=== PATIENT | female | born 1945 | race Caucasian/White ===

== ENCOUNTER 2018-01-17 09:39 | Inpatient (IN) ==
[2018-01-17] MEDS ORDERED: methylPREDNISolone 125 MG/2 ML VIAL IVP ONE (09:40)
[2018-01-17] MEDS ORDERED: Ipratropium/Albuterol Neb 3 ML IH ONE ×2 (09:40→09:45)
--- NOTE | 2018-01-17 09:49 | Emergency Department Note ---
Disposition Clinical Impression: HCAP (healthcare-associated pneumonia), Atrial fibrillation with RVR, Pleural effusion Disposition: Admitted As Inpatient Condition: Fair Referrals: NONE,PCP [Primary Care Provider] - Eyad Humphreys [Family Provider] - Forms: ED Satisfaction Letter SOB HPI - General Chief Complaint: ED Shortness of Breath/Dyspnea Stated Complaint: RATNA, gen. ill Time Seen by Provider: 01/17/18 09:40 Source: patient Mode of arrival: EMS Limitations: no limitations Nursing Notes Reviewed: Yes Vital Signs Reviewed: Yes - History of Present Illness 72-year-old female past medical history COPD with oxygen dependency 4 L nasal cannula, CHF, atrial fibrillation on anticoagulation who presents to the ER via EMS due to shortness of breath. Reports that she was admitted last week to [facility]. States that she went home on Saturday. She continued to feel short of breath but then started to feel worse last night. EMS was called and the patient was reported to be in the 80s on her usual oxygen requirement upon arrival. They exchanged her tubing and she reported improvement of symptoms. She denies any fevers cough chest pain nausea vomiting or diarrhea. No history of PR, DVT or pulmonary embolism. Pt Subjective Complaint: shortness of breath Onset (ago): day(s) Context: recent illness Severity: severe Consistency/Duration: constant Improves with: nothing Worsens with: nothing Known history of: COPD, congestive heart failure Associated symptoms: Reports: denies other symptoms Treatment prior to arrival: oxygen Cough present: No Sputum production: No Sputum Amount: None - Related Data Home oxygen amount: 4 liters Home Medications Medication Instructions Recorded Confirmed Albuterol Sulfate 12/04/17 Betaxolol HCl 12/04/17 Brimonidine 0.2% 12/04/17 Dextromethorphan HBr 12/04/17 Diphenhydramine HCl 12/04/17 Dorzolamide 12/04/17 Doxylamine Succinate 12/04/17 Eliquis 12/04/17 Guaifenesin 12/04/17 Lumigan 12/04/17 Metoprolol 12/04/17 Montelukast 12/04/17 Multivitamin 12/04/17 PredniSONE 12/04/17 Proair Hfa 12/04/17 Symbicort 160/4.5 12/04/17 Previous Rx's Medication Instructions Recorded Benzonatate [Tessalon] 100 mg PO TID #15 capsule 12/04/17 PredniSONE [Deltasone] 20 mg PO DAILY #12 tablet 12/04/17 levoFLOXacin [Levaquin] 500 mg PO DAILY #10 tablet 12/04/17 Allergies Allergy/AdvReac Type Severity Reaction Status Date / Time No Known Allergies Allergy Verified 12/16/17 15:56 All systems ED: reviewed and negative except as stated. Constitutional: Denies: fever Cardiovascular: Denies: chest pain Respiratory: Reports: dyspnea. Denies: cough, wheezes, sputum production Gastrointestinal: Denies: nausea, vomiting, diarrhea Past Medical History - Past Medical History Attestation: Yes The following information was validated with the patient. Source: patient Medical history: Reports: atrial fibrillation, CHF, COPD, glaucoma, other Psychiatric history: Reports: no psych history - Social History Smoking Status: Former smoker Smokeless Tobacco Status: No Alcohol use: Reports: heavy Drug use: Reports: none Physical Exam - General Limitations: no limitations General appearance: alert, in no apparent distress - Head Head exam: atraumatic, normocephalic - Eye Eye exam: Present: normal appearance - ENT ENT exam: normal exam - Neck Neck exam: Present: normal inspection - Chest Chest inspection: Present: normal inspection, symmetric chest wall rise - Respiratory Respiratory exam: Present: prolonged expiratory phase, other (Diminished breath sounds bilaterally.) - Cardiovascular Cardiovascular exam: Present: tachycardia, irregular rhythm, normal heart sounds - Abdominal Exam Abdominal exam: Present: soft, Non-Tender. Absent: tenderness, distention, rigidity - Extremities Exam Extremities exam: Present: normal inspection, full ROM - Expanded Upper Extremity Exam Shoulder exam: Present: normal inspection, full ROM Arm exam: Present: normal inspection, full ROM Elbow exam: Present: normal inspection, full ROM Forearm/Wrist exam: Present: normal inspection, full ROM Hand exam: Present: normal inspection, full ROM - Expanded Lower Extremity Exam Hip/Pelvis exam: Present: normal inspection, full ROM Upper leg exam: Present: normal inspection, full ROM Knee exam: Present: normal inspection, full ROM Lower leg exam: Present: normal inspection, full ROM Ankle exam: Present: normal inspection, full ROM Foot/toe exam: Present: normal inspection, full ROM - Skin Skin exam: Present: warm, dry Course Course Narrative: Patient seen and examined. Vital signs reviewed. Atrial fibrillation with rapid ventricular response here. Blood pressure stable. Plan to give Cardizem bolus and initiated drip. DuoNeb for respiratory distress. Labs including troponin and BNP. EKG and chest x-ray. - Reevaluation(s) Reevaluation #1: Reevaluation. Patient complaining of generalized pain after laying in the bed. Noted to be tachycardic again into the 110s. Increase Cardizem to 10 patient initially was requesting transfer however we check with her insurance and no one is able to cover. They are agreeable with being admitted here. - Consultations Consultation #1: Spoke with interventional radiology at the request of the hospitalist. Aware of the patient. Awaiting INR studies. Vital Signs Temperature 97.7 F 01/17/18 09:41 Pulse Rate 126 01/17/18 09:41 Respiratory Rate 26 01/17/18 09:41 Blood Pressure 113/64 01/17/18 09:41 O2 Sat by Pulse Oximetry 98 01/17/18 09:41 Temperature 97.7 F 01/17/18 09:41 Pulse Rate 126 01/17/18 09:41 Respiratory Rate 32 01/17/18 09:51 Blood Pressure 113/64 01/17/18 09:41 O2 Sat by Pulse Oximetry 98 01/17/18 09:51 Oxygen Delivery Oxygen Delivery Nasal Cannula Shortness of Breath/Dyspnea - [facility] Narrative Medical decision making narrative: 72-year-old female presents with shortness of breath. Found to be in A. fib RVR. Patient rate controlled at this time with Cardizem bolus and drip. Chest x-ray demonstrates a right pleural effusion that was not on her previous imaging. She also has a leukocytosis likely from recent steroid administration. BNP elevated at 1000. Right effusion with concern for underlying opacification. With her recent admission we will cover for healthcare associated pneumonia. Interventional radiology was consulted as well for thoracentesis. Patient admitted to the hospitalist service. - Lab Data Lab results reviewed: Yes I reviewed the patient's lab results. Result diagrams: 01/17/18 10:03 01/17/18 10:03 Lab Results 01/17/18 01/17/18 01/17/18 Range/Units 10:03 10:03 10:03 WBC 19.9 H (4.3-11.1) K/mcL RBC 3.05 L (3.82-4.97) M/mcL Hgb 10.0 L (11.5-15.4) g/dL Hct 33.2 L (35.3-44.9) % MCV 108.9 H (83.0-100.0) fL MCH 32.8 (28.0-33.3) pg MCHC 30.1 L (31.6-35.5) g/dL RDW 12.2 (11.5-14.5) % Plt Count 218 (140-400) K/mcL MPV 11.3 (9.4-12.4) fL Immature Gran % 1.9 (0-4) % Seg Neutrophils % 83.2 % Lymphocytes % 4.5 % Monocytes % 10.1 % Eosinophils % 0.1 % Basophils % 0.2 % Neutrophils # 16.6 H (1.6-8.9) K/mcL Lymphocytes # 0.9 (0.6-4.6) K/mcL Monocytes # 2.0 H (0.0-1.3) K/mcL Eosinophils # 0.0 (0.0-0.6) K/mcL Basophils # 0.0 (0.0-0.2) K/mcL Sodium 136 (136-145) mEq/L Potassium 5.8 H (3.5-5.1) mEq/L Chloride 90 L (98-107) mEq/L Carbon Dioxide 41 H* (23-29) mEq/L BUN 18 (8-23) mg/dL Creatinine 0.75 (0.60-1.20) mg/dL Est GFR ( Amer) > 60 (> 60) Est GFR (Non-Af Amer) > 60 (> 60) BUN/Creatinine Ratio 24 (6-26) Glucose 201 H (70-105) mg/dL Calculated Osmolality 290 (280-300) Calcium 9.1 (8.6-10.3) mg/dL Troponin I < 0.03 (< 0.04) ng/mL B-Natriuretic Peptide 1004 H (Less than 100) pg/mL - Radiology Data Radiology results reviewed: Yes I reviewed the patient's radiology results. Chest X-Ray 01/17/18 09:40 IMPRESSION: Significant worsening of pleural and parenchymal opacity within the lower 2/3 right hemithorax over the past 11 days. This may represent asymmetric pleural effusion and pulmonary edema secondary to congestive heart failure. However, underlying pneumonia should be considered as well due to the asymmetric distribution. RECOMMENDATION: Recommend appropriate treatment for both suspected right lower lobe pneumonia and some congestive heart failure and follow-up imaging to document resolution. D/ / Stephon Gandhi MD / Stephon Gandhi MD Interpreting Provider: Stephon Gandhi MD - EKG Data EKG attestation: Yes I reviewed and interpreted this EKG. EKG results narrative: EKG demonstrates atrial fibrillation with rapid ventricular response with rate of 132. Normal axis. Normal intervals. Normal R-wave progression. No gross ST elevations or depressions. No acute ischemic findings. No significant changes from prior EKG dated 01/06/18. Aylin - Aylin Situation: Demographics, MOA Background: Presenting Complaint, Relevant PMH, Meds, & Allergies Assessment: Vital Signs, Course and respsone to treatment, Exam Concerns, Patient/Family Expectation, Pertinant Lab Results Recommendation: Barrier(s) to disposition, Recommendation based on pending studies, treatments, or consults Aylin Report Given to: Dr. Haidre Viera Repor Time: 13:07 (Agrees with consultation to interventional radiology.)
[2018-01-17 10:23] LABS: Basophils % 0.2 %; Eosinophils % 0.1 %; Hematocrit 33.2 % (35.3-44.9); Immature Granulocytes % 1.9 % (0-4); Lymphocytes # 0.9 K/mcL (0.6-4.6); Lymphocytes % 4.5 %; Mean Corpuscular HGB Conc 30.1 g/dL (31.6-35.5); Mean Corpuscular Hemoglobin 32.8 pg (28.0-33.3); Mean Corpuscular Volume 108.9 fL (83.0-100.0); Mean Platelet Volume 11.3 fL (9.4-12.4); Monocytes % 10.1 %; Neutrophils # 16.6 K/mcL (1.6-8.9); Platelet Count 218 K/mcL (140-400); Red Blood Count 3.05 M/mcL (3.82-4.97); Red Cell Distribution Width 12.2 % (11.5-14.5); Segmented Neutrophils % 83.2 %
--- NOTE | 2018-01-17 10:23 | Emergency Department Note ---
Disposition Clinical Impression: HCAP (healthcare-associated pneumonia) Disposition: Transfer Intermediate Care Fac Referrals: NONE,PCP [Primary Care Provider] - Eyad Humphreys [Family Provider] - Forms: ED Satisfaction Letter General Adult HPI - General Chief complaint: ED Shortness of Breath/Dyspnea Stated complaint: RATNA, gen. ill Time Seen by Provider: 01/17/18 09:40 Source: patient Mode of arrival: EMS Limitations: no limitations - History of Present Illness Pain Scale: 0 - Related Data Home Medications Medication Instructions Recorded Confirmed Albuterol Sulfate 12/04/17 Betaxolol HCl 12/04/17 Brimonidine 0.2% 12/04/17 Dextromethorphan HBr 12/04/17 Diphenhydramine HCl 12/04/17 Dorzolamide 12/04/17 Doxylamine Succinate 12/04/17 Eliquis 12/04/17 Guaifenesin 12/04/17 Lumigan 12/04/17 Metoprolol 12/04/17 Montelukast 12/04/17 Multivitamin 12/04/17 PredniSONE 12/04/17 Proair Hfa 12/04/17 Symbicort 160/4.5 12/04/17 Previous Rx's Medication Instructions Recorded Benzonatate [Tessalon] 100 mg PO TID #15 capsule 12/04/17 PredniSONE [Deltasone] 20 mg PO DAILY #12 tablet 12/04/17 levoFLOXacin [Levaquin] 500 mg PO DAILY #10 tablet 12/04/17 Allergies Allergy/AdvReac Type Severity Reaction Status Date / Time No Known Allergies Allergy Verified 12/16/17 15:56 Constitutional: Denies: fever Cardiovascular: Denies: chest pain Respiratory: Reports: dyspnea. Denies: cough, wheezes, sputum production Gastrointestinal: Denies: nausea, vomiting, diarrhea Past Medical History - Past Medical History Medical history: Reports: atrial fibrillation, CHF, COPD, glaucoma, other Psychiatric history: Reports: no psych history - Social History Smoking Status: Former smoker Smokeless Tobacco Status: No Alcohol use: Reports: heavy Drug use: Reports: none Physical Exam - General Limitations: no limitations General appearance: alert, in no apparent distress Course Vital Signs Temperature 97.7 F 01/17/18 09:41 Pulse Rate 126 01/17/18 09:41 Respiratory Rate 26 07/27/18 09:41 Blood Pressure 113/64 07/27/18 09:41 O2 Sat by Pulse Oximetry 98 01/17/18 09:41 Temperature 97.7 F 01/17/18 09:41 Pulse Rate 126 01/17/18 09:41 Respiratory Rate 32 01/17/18 09:51 Blood Pressure 113/64 01/17/18 09:41 O2 Sat by Pulse Oximetry 98 01/17/18 09:51 Oxygen Delivery Oxygen Delivery Nasal Cannula Medical Decision Making - Lab Data Result diagrams: 01/17/18 10:03 01/17/18 10:03 Lab Results 01/17/18 01/17/18 01/17/18 Range/Units 10:03 10:03 10:03 WBC 19.9 H (4.3-11.1) K/mcL RBC 3.05 L (3.82-4.97) M/mcL Hgb 10.0 L (11.5-15.4) g/dL Hct 33.2 L (35.3-44.9) % MCV 108.9 H (83.0-100.0) fL MCH 32.8 (28.0-33.3) pg MCHC 30.1 L (31.6-35.5) g/dL RDW 12.2 (11.5-14.5) % Plt Count 218 (140-400) K/mcL MPV 11.3 (9.4-12.4) fL Immature Gran % 1.9 (0-4) % Seg Neutrophils % 83.2 % Lymphocytes % 4.5 % Monocytes % 10.1 % Eosinophils % 0.1 % Basophils % 0.2 % Neutrophils # 16.6 H (1.6-8.9) K/mcL Lymphocytes # 0.9 (0.6-4.6) K/mcL Monocytes # 2.0 H (0.0-1.3) K/mcL Eosinophils # 0.0 (0.0-0.6) K/mcL Basophils # 0.0 (0.0-0.2) K/mcL Sodium 136 (136-145) mEq/L Potassium 5.8 H (3.5-5.1) mEq/L Chloride 90 L (98-107) mEq/L Carbon Dioxide 41 H* (23-29) mEq/L BUN 18 (8-23) mg/dL Creatinine 0.75 (0.60-1.20) mg/dL Est GFR ( Amer) > 60 (> 60) Est GFR (Non-Af Amer) > 60 (> 60) BUN/Creatinine Ratio 24 (6-26) Glucose 201 H (70-105) mg/dL Calculated Osmolality 290 (280-300) Calcium 9.1 (8.6-10.3) mg/dL Troponin I < 0.03 (< 0.04) ng/mL B-Natriuretic Peptide 1004 H (Less than 100) pg/mL Attestation Statement - Attestation Attestation: I examined this patient and my medical decision-making was reviewed with the Resident Physician. I agree with the documented findings, disposition and treatment plan as described except to the extent set forth below. 72 year old female presents to the ED fromher private home with family visiting from [place] and states that she feels lik giselle prattib is in RVR , generalized weakness, and altered mental status. Her main historians are her family ( and daughter) and they states taht she was most recently admited to the hospital for hypoxia and dyspnea at [place] about one week ago. Patient is in rvr and appears to be mildly altered and tahcypneic. Jono is requesting that she be transferred to an [facility] hospital due to insurance reasons , eventhough we have offered her admission to our hospital. [facility] has politley decline because they do not have pulmonology services. Joya has likley HCAP and new plerual effusions in her rright lung We mavis transfer
[2018-01-17 10:44] LABS: Troponin I < 0.03 ng/mL (< 0.04)
[2018-01-17 10:48] LABS: BUN/Creatinine Ratio 24 (6-26); Blood Urea Nitrogen 18 mg/dL (8-23); Calcium 9.1 mg/dL (8.6-10.3); Carbon Dioxide 41 mEq/L (23-29); Chloride 90 mEq/L (98-107); Glucose 201 mg/dL (70-105); Osmolality,Calculated 290 (280-300); Potassium 5.8 mEq/L (3.5-5.1); Sodium 136 mEq/L (136-145); eGFR For Non-African Americans > 60 (> 60)
[2018-01-17] MEDS ORDERED: Piperacillin/Tazobactam 3.375 GM in 0.9 % Sodium Chloride Mini Bag 100 ML IVPB ONE (11:01)
[2018-01-17] MEDS ORDERED: Furosemide 40 MG in 0.9 % Sodium Chloride 50 ML IVPB ONE (11:01)
[2018-01-17] MEDS ORDERED: Levofloxacin 750 MG/150 ML 750 MG/150 ML BAG IVPB ONE (11:01)
[2018-01-17] MEDS ORDERED: Furosemide 40 MG/4 ML VIAL IVP ONE (11:11)
[2018-01-17 14:09] LABS: INR 2.7; Prothrombin Time 30.3 Seconds (9.4-12.1)
--- NOTE | 2018-01-17 14:15 | Internal Med History&Physical ---
Date of Encounter: 01/17/18 Internal Medicine - H&P: HPI History of present illness: Ms. Hayward is a 72 year old female Past Med Surg Social Fam HX - Past Medical History Medical history: atrial fibrillation, CHF, COPD, glaucoma, other Additional medical history: glaucoma Psychiatric history: no psych history - Social History Smoking Status: Former smoker Smokeless Tobacco Status: No Alcohol use: heavy Drug use: none Internal Medicine - H&P: Meds Albuterol Sulfate 12/04/17 [History] Benzonatate [Tessalon] 100 mg PO TID #15 capsule 12/04/17 [Rx] Betaxolol HCl 12/04/17 [History] Brimonidine 0.2% 12/04/17 [History] Dextromethorphan HBr 12/04/17 [History] Diphenhydramine HCl 12/04/17 [History] Dorzolamide 12/04/17 [History] Doxylamine Succinate 12/04/17 [History] Eliquis 12/04/17 [History] Guaifenesin 12/04/17 [History] Lumigan 12/04/17 [History] Metoprolol 12/04/17 [History] Montelukast 12/04/17 [History] Multivitamin 12/04/17 [History] PredniSONE 12/04/17 [History] PredniSONE [Deltasone] 20 mg PO DAILY #12 tablet 12/04/17 [Rx] Proair Hfa 12/04/17 [History] Symbicort 160/4.5 12/04/17 [History] levoFLOXacin [Levaquin] 500 mg PO DAILY #10 tablet 12/04/17 [Rx] 3 Allergy/AdvReac Type Severity Reaction Status Date / Time No Known Allergies Allergy Verified 12/16/17 15:56 All Systems PM: A 10-system review of systems was performed and is negative for pertinent findings except as documented above in the HPI. - Constitutional Vitals: Temp Pulse Resp BP Pulse Ox 97.7 F 109 19 106/64 94 01/17/18 09:41 01/17/18 13:37 01/17/18 13:37 01/17/18 13:37 01/17/18 13:37 Internal Med - H&P Results - Labs CBC & Chem 7: 01/17/18 10:03 01/17/18 10:03 - Assessment and plan (1) HCAP (healthcare-associated pneumonia) Current Visit: Yes Status: Acute Assessment and plan: will continue vancomycin, zosyn and levaquin for HCAP Pulmonary/critical care and IR on board for thoracocentesis the right sided pleural effusion follow thoracocentesis labs high risk for intubation- critical care is onboard follow lactic acid, ABG STAT please obtain records from [facility] oxygen via nasal cannula keeps sats > 92% follow bess cx send urine antigens (2) Pleural effusion Current Visit: Yes Status: Acute Assessment and plan: new right sided large pleural effusion will hold eliquis for now - Pulmonary/critical care and IR on board for thoracocentesis the right sided pleural effusion follow thoracocentesis labs will continue vancomycin, zosyn and levaquin for HCAP high risk for intubation- critical care is onboard follow lactic acid, ABG Lasix IV 40 mg Qday - was given one dose in the ED - biacrb is 41 will refrain from making her more alkalotic strict intake and out put cardiology consult for acute CHF please obtain records from [facility] oxygen via nasal cannula keeps sats > 92% follow bess cx (3) Atrial fibrillation with RVR Current Visit: Yes Status: Acute Assessment and plan: continue cardizem drip - currently rate is more controlled cardiology consulted will get TTE STAT obtain info from [facility] (4) Acute systolic CHF (congestive heart failure), NYHA class 3 Current Visit: Yes Status: Acute - Time Spent With Patient Total time spent is greater than 50% in coordination of care (as documented) at patient's floor/unit and/or counseling patient:
[2018-01-17 14:16] LABS: ABG Base Excess 15 mEq/L (-2 to 3); ABG HCO3 46 mEq/L (21-27); ABG Oxygen Saturation 83 % (95-98); ABG PCO2 98 mmHg (35-45); ABG PH 7.28 pH Units (7.32-7.45); ABG PO2 58 mmHg (85-104); ABG TCO2 49 mEq/L (20-26)
--- NOTE | 2018-01-17 14:21 | Pulmonology Consult Note ---
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 decompensated heart failure complicated by underlying COPD ABG is notable for acute on chronic worsening hypoxia and hypercapnic respiratory failure with baseline PCO2 of 7.28 and Pco2 of 98 This is secondary to hydrostatic pulmonary edema from heart failure and should improve as we are able to M improve her volume status We will start the patient on BiPAP and titrate settings as tolerated Repeat blood gas in 1-2 hours I discussed the case with the admitting hospitalist they requested the patient be transferred to the ICU for monitoring (2) COPD (chronic obstructive pulmonary disease) Current Visit: Yes Status: Acute I do not think she is having acute COPD exacerbation No clear indication for systemic glucocorticoids at this time We will schedule bronchodilators Supplemental oxygen keep saturation greater than 88% Qualifiers: Emphysema type: centrilobular Qualified Code(s): J43.2 - Centrilobular emphysema (3) Hyperkalemia Current Visit: Yes Status: Acute Without evidence of acute kidney injury. Doing dose of Lasix now which should improve this is likely some degree related to acidosis and that should improve also with treatment of underlying respiratory status. We will give a dose of calcium gluconate at this time and repeat value within 4 hours as remains elevated will give sodium polystyrene (4) Acute decompensated heart failure Current Visit: Yes Status: Acute Stat echocardiogram ordered Lasix given Cardiology consulted for worsening decompensated heart failure complicated by A. fib with RVR No clear indication that this was precipitated by obstructive coronary artery disease but we will discuss the case with cardiology regarding possibility of heart catheterization as this appears to be a new diagnosis of heart failure We will closely monitor her electrolytes including magnesium Strict I's and O's and will need Herrmann catheter placement (5) Atrial fibrillation with RVR Current Visit: Yes Status: Acute Currently receiving Cardizem infusion No dynamic changes on ECG suggestive of ischemia Holding long-term anticoagulation with Eliquis acutely (6) Pleural effusion Current Visit: Yes Status: Acute I evaluated the pleural effusion at bedside with ultrasound There is a large right-sided pleural effusion without complex features Secondary to heart failure Plan for thoracentesis once eliquis has cleared (likely tomorrow) cont diuresis (7) Leucocytosis Current Visit: Yes Status: Acute Patient has had persistent leukocytosis in fact from discharge from the hospital last admission she has had persistent leukocytosis at 15 at discharge last time now 19 but is afebrile source of infection at this time except what appears to be resolving cellulitis patient has been taking prednisone as well and I suspect that this is factoring into her elevated white blood cell count bess cultures will be obtained have a low threshold for starting empiric antimicrobials but given alterable rounds of antibiotics she is received from last month and more likely expedition related to decompensated heart failure as opposed to sepsis I have opted to monitor the patient as opposed to starting empiric antimicrobials. Lactic Acid WNL We will check pro-calcitonin Qualifiers: Leukocytosis type: unspecified Qualified Code(s): D72.829 - Elevated white blood cell count, unspecified History of Present Illness Consult date: 01/17/18 Requesting physician: Sera Thayer Reason for consult: hypoxemia Chief complaint: Difficulty in breathing. History of present illness: This is a very pleasant 72-year-old woman with past medical history of COPD and atrial fibrillation. The patient is from [place] and is visiting family here in [place] over the last month where she has had several hospitalizations. 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 on 01/06 for shortness of breath was treated for pneumonia COPD exacerbation and atrial fibrillation with RVR in the ED and transferred to [facility] because of insurance reasons. There she received a course of antibiotics prednisone was found to be in A. fib with RVR that was treated echocardiogram was performed which showed preserved ejection fraction per the family but to increase vascular congestion that they that was related to heart failure she was sent home after feeling somewhat better but returned to the hospital subsequently because of right upper extremity swelling and ultrasound of the extremity was done which was negative for DVT and she was treated with clindamycin for cellulitis which she was taking when she presented to the emergency department here at [place]. She is joined by her family including and daughter who states that she has had progressive shortness of breath and weakness and so they brought her back to the hospital a day. In the emergency department was noted be in A. fib with RVR with borderline hypotension but map has been consistently above 60. She has been afebrile but white count was elevated on examination she started having mild hyperkalemia but without the acute kidney injury BNP was greater than 1000 troponin was within normal limits lactate is pending chest x-ray notable for large right-sided opacity likely an effusion. She was originally triaged to the hospitalist service for telemetry monitoring and treatment of atrial fibrillation with presumed heart failure and the hot accepting hospitalist was confirmed by respiratory status and consulted pulmonary for further evaluation. In speaking with the patient the ED she tells me that she is short of breath but she is asked able to speak to me in relatively full sentences. She is fully awake and alert and the first admission she told me was that she "wanted to go home" and by that she is referring to wanting to be a little back to her home state [facility] which I assured her we will try to treat her as expeditiously as possible to improve her health in order to fulfill those wishes Although she suffers from baseline COPD there is no chronic oxygen requirement that they tell me about infection she at baseline is able uses stationary bike and walk distances without significant shortness of breath that appears that most of her dyspnea has occurred during the last month or so since she has been in [place]. She is a former smoker of [employer] but that is currently in remission. The patient denies productive cough abdominal pain chest pain diarrhea and nausea vomiting or neck pain. Of note she has a history of Childhood poliomyelitis Past Med Surg Social Fam HX - Past Medical History Medical history: atrial fibrillation, CHF, COPD, glaucoma, other Additional medical history: glaucoma Psychiatric history: no psych history - Social History Smoking Status: Former smoker Smokeless Tobacco Status: No Alcohol use: heavy Drug use: none Medications and Allergies 3 Allergy/AdvReac Type Severity Reaction Status Date / Time No Known Allergies Allergy Verified 12/16/17 15:56 All Systems: The remainder of the systems were reviewed and are negative Physical Examination Vital Signs: Vital Signs, Last 4 Hours Pulse Resp BP Pulse Ox 01/17/18 13:37 109 19 106/64 94 General appearance: no acute distress ENT: oropharynx moist Neck: supple, JVD Effort: mildly labored Auscultation: bilateral: diminished breath sounds (R> L left crakcles noted no wheezes ) Cardiovascular: irregular rhythm Gastrointestinal: soft, non-tender Integumentary: other (A few scattered areas of ecchymosis no rash) Extremities: edema (Bilateral 1+ pitting edema), other (Right upper extremity has some mild erythema over the mid humeral region there are pen escalona of demarcation from previous assessment in the erythema is markedly improved from the original demarcation line there is no open ulceration or fluctuance) Musculoskeletal: other (She has a left leg that is smaller in size than the right and that is a sequelae of childhood polio) normal mental status, non-focal exam, pupils equal and round anxious Results - Laboratory Findings CBC and BMP: 01/17/18 10:03 01/17/18 10:03 Abnormal lab findings: Abnormal lab results WBC 19.9 K/mcL (4.3-11.1) H 01/17/18 10:03 RBC 3.05 M/mcL (3.82-4.97) L 01/17/18 10:03 Hgb 10.0 g/dL (11.5-15.4) L 01/17/18 10:03 Hct 33.2 % (35.3-44.9) L 01/17/18 10:03 MCV 108.9 fL (83.0-100.0) H 01/17/18 10:03 MCHC 30.1 g/dL (31.6-35.5) L 01/17/18 10:03 Neutrophils # 16.6 K/mcL (1.6-8.9) H 01/17/18 10:03 Monocytes # 2.0 K/mcL (0.0-1.3) H 01/17/18 10:03 Potassium 5.8 mEq/L (3.5-5.1) H 01/17/18 10:03 Chloride 90 mEq/L (98-107) L 01/17/18 10:03 Carbon Dioxide 41 mEq/L (23-29) H* 01/17/18 10:03 Glucose 201 mg/dL (70-105) H 01/17/18 10:03 B-Natriuretic Peptide 1004 pg/mL (Less than 100) H 01/17/18 10:03 - Diagnostic Findings Chest x-ray: report reviewed, image reviewed - Clinical Findings Intake & Output: Intake & Output 07/01/17/18 01/17/18 23:59 07:59 15:59 Intake Total 150 / 160 Balance 150 / 160 Consult Discharge Plan - Plan Referrals: NONE,PCP [Primary Care Provider] - Eyad Humphreys [Family Provider] -
--- NOTE | 2018-01-17 14:42 | Event Note ---
Date of Encounter: 01/17/18 Time of Encounter: 14:[address] Aguirre about the lab finding including ABG. we discussed the case. he agreed to admit patient to the ICU for further management of the acute on chronic respiratory failure, new right sided pleural effusion, Acute CHF exacerbation and hyperkalemia.
[2018-01-17 15:02] LABS: Magnesium 1.7 mg/dL (1.6-2.6)
[2018-01-17] MEDS ORDERED: Naloxone 0.4 MG/ML INJ IVP PRN (16:12)
[2018-01-17 17:01] LABS: BUN/Creatinine Ratio 24 (6-26); Blood Urea Nitrogen 18 mg/dL (8-23); Calcium 9.3 mg/dL (8.6-10.3); Carbon Dioxide 46 mEq/L (23-29); Chloride 85 mEq/L (98-107); Glucose 162 mg/dL (70-105); Osmolality,Calculated 289 (280-300); Potassium 5.5 mEq/L (3.5-5.1); Sodium 137 mEq/L (136-145); eGFR For Non-African Americans > 60 (> 60)
[2018-01-17] MEDS ORDERED: D5% in Water 1,000 ML IVC PRN (17:51)
[2018-01-17] MEDS ORDERED: Dextrose Gel 15 GM/37.5 ML TUBE PO PRN ×2 (17:51)
[2018-01-17] MEDS ORDERED: *HR* Dextrose 50 % in Water (Syg) 50 ML SYRINGE IVP PRN (17:51)
[2018-01-17] MEDS: Insulin LISPRO 300 UNITS/3 ML VIAL SQ SCH (20:39)
[2018-01-17] MEDS ORDERED: Latanoprost 2.5 ML BOTTLE BOTH EYES SCH (22:45)
[2018-01-17] MEDS: Dorzolamide OPTH 10 ML BOTTLE BOTH EYES SCH (23:23)
[2018-01-18] MEDS: LUMIGAN 0.01% OP SCH ×2 (01:20→20:06)
[2018-01-18] MEDS: Insulin LISPRO 300 UNITS/3 ML VIAL SQ SCH ×4 (01:21→20:08)
[2018-01-18 02:11] LABS: Basophils % 0.1 %; Hematocrit 28.2 % (35.3-44.9); Hemoglobin 8.9 g/dL (11.5-15.4); Immature Granulocytes % 0.7 % (0-4); Lymphocytes # 0.4 K/mcL (0.6-4.6); Lymphocytes % 3.7 %; Mean Corpuscular HGB Conc 31.6 g/dL (31.6-35.5); Mean Corpuscular Hemoglobin 33.8 pg (28.0-33.3); Mean Corpuscular Volume 107.2 fL (83.0-100.0); Mean Platelet Volume 10.5 fL (9.4-12.4); Monocytes # 0.7 K/mcL (0.0-1.3); Monocytes % 5.7 %; Neutrophils # 10.4 K/mcL (1.6-8.9); Platelet Count 177 K/mcL (140-400); Red Blood Count 2.63 M/mcL (3.82-4.97); Red Cell Distribution Width 12.2 % (11.5-14.5); Segmented Neutrophils % 89.8 %
[2018-01-18 02:35] LABS: BUN/Creatinine Ratio 27 (6-26); Blood Urea Nitrogen 17 mg/dL (8-23); Calcium 8.9 mg/dL (8.6-10.3); Carbon Dioxide > 45 mEq/L (23-29); Chloride 86 mEq/L (98-107); Glucose 118 mg/dL (70-105); Osmolality,Calculated 291 (280-300); Potassium 4.4 mEq/L (3.5-5.1); Sodium 139 mEq/L (136-145); eGFR For Non-African Americans > 60 (> 60)
[2018-01-18 05:48] LABS: ABG Base Excess 24 mEq/L (-2 to 3); ABG HCO3 52 mEq/L (21-27); ABG Oxygen Saturation 94 % (95-98); ABG PCO2 84 mmHg (35-45); ABG PO2 78 mmHg (85-104); ABG TCO2 55 mEq/L (20-26)
[2018-01-18 07:12] LABS: Magnesium 1.6 mg/dL (1.6-2.6)
[2018-01-18 07:27] LABS: INR 2.2; Prothrombin Time 24.8 Seconds (9.4-12.1)
[2018-01-18] MEDS ORDERED: Furosemide 40 MG/4 ML VIAL IVP ONE (07:32)
[2018-01-18 07:54] LABS: Thyroid Stimulating Hormone 0.588 mcIU/mL (0.340-5.600)
[2018-01-18] MEDS ORDERED: *HR* Phytonadione 10 MG/ML AMPUL SQ ONE (08:36)
[2018-01-18] MEDS: Dorzolamide OPTH 10 ML BOTTLE BOTH EYES SCH ×2 (09:01→20:05)
[2018-01-18] MEDS: BETAXOLOL HCL OP SCH (09:01)
[2018-01-18] MEDS: dilTIAZem HCl 60 MG TABLET PO SCH ×2 (09:05→09:11)
[2018-01-18] MEDS ORDERED: Amiodarone Premix 360 MG/200 ML BAG IVC ONE ×2 (10:21→10:24)
--- NOTE | 2018-01-18 10:26 | Pulmonology Progress Note ---
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 Continue supplemental oxygen to keep saturation greater than 88% around 92% patient says she wears 4 L nasal cannula at all times which was misunderstood by myself on yesterday's examination (2) COPD (chronic obstructive pulmonary disease) Current Visit: Yes Status: Acute No clear evidence of acute exacerbation schedule bronchodilators no indication for systemic glucocorticoids doubt infection will not prescribe antibiotics at either Qualifiers: Emphysema type: centrilobular Qualified Code(s): J43.2 - Centrilobular emphysema (3) Hyperkalemia Current Visit: Yes Status: Acute This has resolved overnight with correction of acidemia and diuresis continue to monitor (4) Acute decompensated heart failure Current Visit: Yes Status: Acute This is likely precipitated by A. 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 and making recommendations possibly starting amiodarone Today Eliquis today for planned thoracentesis (6) Pleural effusion Current Visit: Yes Status: Acute Patient has large right-sided pleural effusion plan for therapeutic thoracentesis today wedge INR is corrected I have given 5 mg of vitamin K for this ELiquis has been on hold for at least 24 hours (7) Leucocytosis Current Visit: Yes Status: Acute This is reduced markedly I doubt infection protocol calcitonin pending she received antibiotics in the ED I am not inclined to continue those at this time cultures of been obtained we will follow up on on these and add antimicrobials if indicated Stable for transfer to [facility] for ongoing care Qualifiers: Leukocytosis type: unspecified Qualified Code(s): D72.829 - Elevated white blood cell count, unspecified Subjective Principal diagnosis: CHF Interval history: has done well overnight. ABG has improved with diuresis and use of noninvasive ventilation. Unfortunately she remains in A. fib with RVR cardiology consultation pending Objective PUL Vital signs: Last Vital Signs Temp 98.1 F 01/18/18 07:43 Pulse 134 01/18/18 09:00 Resp 10 01/18/18 09:00 BP 121/77 01/18/18 09:00 Pulse Ox 94 01/18/18 09:00 General appearance: no acute distress, other (More awake and alert today) Eyes: nonicteric ENT: oropharynx moist Neck: supple, JVD Effort: normal Auscultation: bilateral: diminished breath sounds Cardiovascular: irregular rhythm Gastrointestinal: normoactive bowel sounds, soft, non-tender Integumentary: other (Scattered areas of ecchymosis) Extremities: no ischemia or petechiae, edema Musculoskeletal: no deformities normal mental status, non-focal exam mood appropriate Results - Laboratory Findings CBC and BMP: 01/18/18 01:51 01/18/18 01:51 ABG ABG pH 7.40 pH Units (7.32-7.45) 01/18/18 05:44 ABG pCO2 84 mmHg (35-45) H* 01/18/18 05:44 ABG pO2 78 mmHg (85-104) L 01/18/18 05:44 ABG O2 Saturation 94 % (95-98) L 01/18/18 05:44 PT/INR, D-dimer PT 24.8 Seconds (9.4-12.1) H 01/18/18 07:07 Abnormal lab findings: Abnormal lab results WBC 11.6 K/mcL (4.3-11.1) H 01/18/18 01:51 RBC 2.63 M/mcL (3.82-4.97) L 01/18/18 01:51 Hgb 8.9 g/dL (11.5-15.4) L 01/18/18 01:51 Hct 28.2 % (35.3-44.9) L 01/18/18 01:51 MCV 107.2 fL (83.0-100.0) H 01/18/18 01:51 MCH 33.8 pg (28.0-33.3) H 01/18/18 01:51 Neutrophils # 10.4 K/mcL (1.6-8.9) H 01/18/18 01:51 Lymphocytes # 0.4 K/mcL (0.6-4.6) L 01/18/18 01:51 PT 24.8 Seconds (9.4-12.1) H 01/18/18 07:07 ABG pCO2 84 mmHg (35-45) H* 01/18/18 05:44 ABG pO2 78 mmHg (85-104) L 01/18/18 05:44 ABG HCO3 52 mEq/L (21-27) H 01/18/18 05:44 ABG Total CO2 55 mEq/L (20-26) H 01/18/18 05:44 ABG O2 Saturation 94 % (95-98) L 01/18/18 05:44 ABG Base Excess 24 mEq/L (-2 to 3) H 01/18/18 05:44 Chloride 86 mEq/L (98-107) L 01/18/18 01:51 Carbon Dioxide > 45 mEq/L (23-29) H* 01/18/18 01:51 BUN/Creatinine Ratio 27 (6-26) H 01/18/18 01:51 Glucose 118 mg/dL (70-105) H 01/18/18 01:51 POC Glucose 107 mg/dL (70-99) H 01/17/18 22:47 B-Natriuretic Peptide 754 pg/mL (Less than 100) H 01/17/18 16:16 - Clinical Findings Intake & Output: Intake & Output 01/17/18 01/18/18 01/18/18 23:59 07:59 15:59 Intake Total 62.9 / 102.9 77.1 / 77.1 50 / 50 Output Total 1275 / 1275 210 / 210 Balance -1212.1 / -1172.1 -132.9 / -132.9 50 / 50 Weight 69.2 kg - VTE Documentation of Mechanical Device: Intermittent pneumatic compression device Consult Discharge Plan - Plan Referrals: NONE,PCP [Primary Care Provider] - Eyad Humphreys [Family Provider] -
--- NOTE | 2018-01-18 10:57 | Cardiology Consult Note ---
Date of Encounter: 01/18/18 Time of Encounter: 10:00 Assessment and Plan (1) Diastolic heart failure Current Visit: Yes Status: Acute Suspect patient developed a COPD exacerbation initially which secondarily resulted in exacerbation of her known dysrhythmia and subsequently diastolic heart failure. Her LVEF is 50-55%. Agree with gentle diuresis. She will likely improve clinically once she has the thoracentesis performed. Qualifiers: Heart failure chronicity: acute Qualified Code(s): I50.31 - Acute diastolic (congestive) heart failure (2) Atrial fibrillation with RVR Current Visit: Yes Status: Acute AFIB RVR not well controlled. Unable to uptitrate cardizem due to borderline blood pressures. Recommend stopping cardizem and using amiodarone IV temporarily - would not prefer half-way use due to underlying significant COPD. She is essentially anticoagulated with INR 2.2 but is being given Vitamin K to perform thoracentesis later. Would consider restarting her home Eliquis later today after thoracentesis is complete. Although PE should be considered given her recent travel, suspicion is not high at this point. Nevertheless, she will be anticoagulated with Eliquis. Discussion w patient/family: The assessment and plan as outlined above was discussed with the patient and/or family members who expressed understanding and agreement. All questions were answered. Thank you for involving us in the care of your patient. Please call with any questions. History of Present Illness Consult date: 01/18/18 Requesting physician: Anton Aguirre Consult reason: AFIB, CHF Chief complaint: SOB History of present illness: Ms. Hayward is a 72 year old female presenting for worsening SOB. Reviewed ER notes, admission note and pertinent data. Patient from [place] and came to [place] to visit family. Since coming here, she's been admitted to the hospital multiple times. She has COPD and wears 4L of home oxygen around the clock. She has been treated at [place] recently for a COPD exacerbation. However, despite Abx and steroid therapy, her symptoms worsened and she presented here to [place]. On admission, patient noted to be in afib with RVR. CXR demonstrated moderate to large right pleural effusion with possible underlying pneumonia. Troponin negative. No acute ECG findings. Echo demonstrated normal LVEF, mild to moderate valvular abnormalities. Denies LE edema or pain/swelling in lower extremities. Past Med Surg Social Fam HX - Past Medical History Attestation: Yes The following information was validated with the patient. Medical history: atrial fibrillation, CHF, COPD, glaucoma, other Additional medical history: glaucoma Psychiatric history: no psych history - Social History Smoking Status: Former smoker Smokeless Tobacco Status: No Alcohol use: heavy Drug use: none Medications and Allergies Albuterol Neb [Proventil Neb] 3 ml IH TID 01/17/18 [History] Albuterol Sulfate [Proair Hfa] 1 puff IH DAILY 01/17/18 [History] Apixaban [Eliquis] 5 mg PO BID 01/17/18 [History] Betaxolol HCl [Betoptic S] 1 drop OP QAM 01/17/18 [History] Bimatoprost [Lumigan] 1 drop OP HS 01/17/18 [History] Brimonidine Tartrate [Alphagan P] 1 drop OP TID 01/17/18 [History] Budesonide/Formoterol 160/4.5 [Symbicort 160/4.5] 2 puff IH BIDR 01/17/18 [ History] Clindamycin HCl [Clindamycin HCl] 300 mg PO QID 01/17/18 [History] Diltiazem HCl [Diltiazem 24Hr Cd] 180 mg PO QAM 01/17/18 [History] DiphenhydraMINE [Benadryl] 50 mg PO HS PRN 01/17/18 [History] Dorzolamide HCl [Dorzolamide HCl] 1 drop OP BID 01/17/18 [History] Guaifenesin [Mucinex] 600 mg PO BID 01/17/18 [History] Metoprolol [Lopressor] 25 mg PO BID 01/17/18 [History] Montelukast [Singulair] 10 mg PO DAILY 01/17/18 [History] Multivitamin [One Daily Essential] 1 tab PO DAILY 01/17/18 [History] Oxygen [Oxygen] 2.5 - 4.5 l IH DAILY 01/17/18 [History] Pantoprazole Sodium [Protonix] 40 mg PO BID 01/17/18 [History] 3 Allergy/AdvReac Type Severity Reaction Status Date / Time No Known Allergies Allergy Verified 01/17/18 14:58 All Systems Review: The remainder of the systems were reviewed and are negative - Cardiovascular Cardiovascular: as per HPI Physical Examination Vital Signs, Last 4 Hours Temp Pulse Resp BP Pulse Ox 01/18/18 09:00 134 10 121/77 94 01/18/18 08:30 120 96 01/18/18 08:00 120 10 121/69 94 01/18/18 07:43 98.1 F 01/18/18 07:00 139 10 112/60 94 General: Conversant, No Apparent Distress, Other (wearing nasal cannular) HEENT: Mucus Membranes Moist Neck: Other (Elevated JVP) Cardiac: Other (irregularly irregular, soft murmur LSB) Lungs: Other (diminished breath sounds ) Neuro: Alert and responsive, No focal deficits noted Abdomen: Soft, Non-Tender, Other (nondistended, normal bowel sounds) Extremities: Other (mild bilateral LE edema) Results 01/18/18 01:51 01/18/18 01:51 Lab Results 01/17/18 01/17/18 01/17/18 16:16 16:16 18:24 WBC Hgb Hct Plt Count INR Sodium 137 Potassium 5.5 H 5.4 H Chloride 85 L Carbon Dioxide 46 H* BUN 18 Creatinine 0.76 Glucose 162 H Calcium 9.3 Magnesium B-Natriuretic Peptide 754 H TSH 01/18/18 01/18/18 01/18/18 01:51 01:51 07:07 WBC 11.6 H Hgb 8.9 L Hct 28.2 L Plt Count 177 INR 2.2 Sodium 139 Potassium 4.4 Chloride 86 L Carbon Dioxide > 45 H* BUN 17 Creatinine 0.63 Glucose 118 H Calcium 8.9 Magnesium 1.6 B-Natriuretic Peptide TSH 01/18/18 07:07 WBC Hgb Hct Plt Count INR Sodium Potassium Chloride Carbon Dioxide BUN Creatinine Glucose Calcium Magnesium B-Natriuretic Peptide TSH 0.588 - Imaging and Cardiology Echo: report reviewed, image reviewed - EKG Interpretation EKG results cardiology: personally reviewed (Presenting ECG demonstrates AFIB RVR, no acute findings) Consult Discharge Plan - Plan Referrals: NONE,PCP [Primary Care Provider] - Eyad Humphreys [Family Provider] -
[2018-01-18 11:16] LABS: INR 1.9; Prothrombin Time 21.8 Seconds (9.4-12.1)
[2018-01-18] MEDS ORDERED: Dextrose Gel 15 GM/37.5 ML TUBE PO PRN ×2 (11:44)
[2018-01-18] MEDS ORDERED: *HR* Dextrose 50 % in Water (Syg) 50 ML SYRINGE IVP PRN (11:44)
[2018-01-18] MEDS ORDERED: Naloxone 0.4 MG/ML INJ IVP PRN (11:44)
[2018-01-18] MEDS ORDERED: D5% in Water 1,000 ML IVC PRN (11:44)
[2018-01-18] MEDS ORDERED: Insulin LISPRO 300 UNITS/3 ML VIAL SQ SCH (12:00)
[2018-01-18 12:54] LABS: INR 1.9; Prothrombin Time 21.2 Seconds (9.4-12.1)
[2018-01-18 14:36] LABS: Lactate Dehydrogenase 209 Units/L (140-271); Total Protein 5.4 g/dL (6.4-8.9)
--- NOTE | 2018-01-18 14:50 | Procedure Note ---
<Billy Goodson - Last Filed: 01/18/18 14:45> Date of procedure: 01/18/18 Pre-op diagnosis: Pleural effusion Post-op diagnosis: same Procedure: Thoracentesis Date: 01/18/18 Indictation: Pleural Effusion Motor Polarizer: Dr. Billy Goodson DO Attending: Dr. Anton Aguirre MD Timeout was completed verifying correct patient, procedure, site, positioning, as special equipment if applicable. The proceduralist was properly gowned, capped, gloved, and masked. The patient's right side was prepped and draped in a sterile manner after the appropriate infiltration level was confirmed by ultrasound and marked. 1% lidocaine was used to NSI and the surrounding skin. A finder needle was then used to locate the fluid and straw colored fluid was obtained. An 11 blade scalpel was used to make the incision. The thoracentesis catheter was then threaded without difficulty and pleural fluid was collected in a sterile 50ml syringe for lab studies. The patient had 1200cc of fluid removed during the procedure. The attending physician was present for the entire procedure. A postprocedure chest x-ray was ordered and reviewed. The patient tolerated the procedure well and there were no complications. Anesthesia: local Surgeon: Billy Goodson Was there an review assistant present: Yes Mannequin Mounter: Anton Aguirre Estimated blood loss (cc): 2 Specimen: pleural fluid Condition: stable Disposition: floor <Anton Aguirre - Last Filed: 01/18/18 16:44> - Attending Attestation I was present for and supervised the entire procedure by te resident who performed the procedure Skillfullly
[2018-01-18] MEDS ORDERED: Amiodarone Premix 360 MG/200 ML BAG IVC SCH (16:00)
[2018-01-18] MEDS: Amiodarone Premix 360 MG/200 ML BAG IVC SCH (17:25)
[2018-01-18 19:55] LABS: RBC,Pleural Fluid < 0.002 M/mcL
[2018-01-18 19:57] LABS: Appearance of Pleural Fl Clear (Clear)
[2018-01-18] MEDS: Patient Taking Own Medication 1 EACH OP SCH (20:07)
[2018-01-18 20:31] LABS: Amylase,Pleural Fluid 10 Units/L (No Ref Range); Glucose,Pleural Fluid 132 mg/dL (No Ref Range); LDH,Pleural Fluid 48 Units/L (No Ref Range); Total Protein,Pleural Fluid < 3.0 g/dL (No Ref Range)
--- NOTE | 2018-01-18 21:00 | Electrocardiograph Report ---
[place] Double Fusion Test Date: 2018-01-17 Pat Name: Amelie Hayward Department: [id number] Room: 2N01 Gender: F Product Support Analyst: : [id number] Requested By: Félix Jurado Order Number: [id number] Reading MD: Ghassan Drake Measurements Intervals [place] Rate: 132 P: [place]: 0 QRS: 22 QRSD: 93 T: 25 QT: 279 QTc: 357 Interpretive Statements ATRIAL FIBRILLATION WITH RAPID VENTRICULAR RESPONSE NONSPECIFIC T-WAVE ABNORMALITY Electronically Signed On 01-18-2018 20:58:33 EDT by Ghassan Drake
[2018-01-19 03:09] LABS: Basophils % 0.1 %; Eosinophils % 0.1 %; Hematocrit 31.2 % (35.3-44.9); Hemoglobin 9.6 g/dL (11.5-15.4); Immature Granulocytes % 0.6 % (0-4); Lymphocytes # 0.9 K/mcL (0.6-4.6); Lymphocytes % 5.1 %; Mean Corpuscular HGB Conc 30.8 g/dL (31.6-35.5); Mean Corpuscular Volume 107.2 fL (83.0-100.0); Mean Platelet Volume 9.9 fL (9.4-12.4); Monocytes # 1.8 K/mcL (0.0-1.3); Monocytes % 10.3 %; Neutrophils # 14.2 K/mcL (1.6-8.9); Platelet Count 207 K/mcL (140-400); Red Blood Count 2.91 M/mcL (3.82-4.97); Red Cell Distribution Width 12.5 % (11.5-14.5); Segmented Neutrophils % 83.8 %
[2018-01-19 03:43] LABS: BUN/Creatinine Ratio 34 (6-26); Blood Urea Nitrogen 21 mg/dL (8-23); Carbon Dioxide > 45 mEq/L (23-29); Chloride 87 mEq/L (98-107); Glucose 115 mg/dL (70-105); Osmolality,Calculated 292 (280-300); Sodium 139 mEq/L (136-145); eGFR For Non-African Americans > 60 (> 60)
[2018-01-19] MEDS: Amiodarone Premix 360 MG/200 ML BAG IVC SCH (04:39)
--- NOTE | 2018-01-19 06:49 | Pulmonology Progress Note ---
Date of Encounter: 01/19/18 Time of Encounter: 06:49 Assessment and Plan (1) Acute on chronic respiratory failure with hypoxia and hypercapnia Current Visit: Yes Status: Acute This is multifactorial including decompensated heart failure complicated by underlying COPD Improving with diuresis Continue an NIV at night and would likely qualify for NIV of the time of discharge she is reluctant to start this on a permanent basis additionally if stabilized during this hospitalization she could discuss this at home with her primary chief technician x ray Continue supplemental oxygen to keep saturation greater than 88% around 92% patient says she wears 4 L nasal cannula at all times which was misunderstood by myself on yesterday's examination (2) COPD (chronic obstructive pulmonary disease) Current Visit: Yes Status: Acute No clear evidence of acute exacerbation schedule bronchodilators no indication for systemic glucocorticoids doubt infection will not prescribe antibiotics at either Qualifiers: Emphysema type: unspecified Qualified Code(s): J43.9 - Emphysema, unspecified (3) Acute decompensated heart failure Current Visit: Yes Status: Acute This is likely precipitated by A. fib with RVR Echo shows preserved ejection fraction but biatrial enlargement including significantly enlarged left atrium consistent with heart failure with preserved ejection fraction Continue diuresis today Etiology consulted pending official recommendations (4) Atrial fibrillation with RVR Current Visit: Yes Status: Acute She remains in A. fib with RVR despite amiodarone Etiology following His is related to her second pulmonary edema from heart failure Possibly mediated by untreated infectious process or less likely PE Recommend CTA for further evaluation Restart NOAC if Cardiology in agreement (5) Pleural effusion Current Visit: Yes Status: Acute Status post 1.2 L volume removal yesterday Pleural fluid consistent with transudative process likely secondary to heart failure CYTOLOGY results pending No clear need to repeat thoracentesis today (6) Leucocytosis Current Visit: Yes Status: Acute WBC count is elevated today from 11 back to 17 remains afebrile no clear source of infection possibly pneumonia we will have CT of the chest to further evaluate this. Would hold antibiotics at present based upon radiographic evaluation. Pro-calcitonin pending Qualifiers: Leukocytosis type: unspecified Qualified Code(s): D72.829 - Elevated white blood cell count, unspecified Subjective Principal diagnosis: CHF Interval history: has done well overnight. No real change after 1.2 L of transudative fluid was removed from her right pleural space yesterday however procedure was performed without untoward complication. She has remained in A. fib with RVR despite amiodarone infusion otherwise hemodynamically stable and afebrile. White count elevated back to 17 today from 11 the prior day Objective PUL Vital signs: Last Vital Signs Temp 98.2 F 01/19/18 04:03 Pulse 119 01/19/18 04:03 Resp 15 01/19/18 04:03 BP 111/49 01/19/18 04:03 Pulse Ox 99 01/19/18 04:03 General appearance: no acute distress Eyes: nonicteric ENT: oropharynx moist Neck: supple, JVD Auscultation: left: rales, right: diminished breath sounds Cardiovascular: irregular rhythm Gastrointestinal: normoactive bowel sounds, soft, non-tender Integumentary: other (No rash) Extremities: edema Musculoskeletal: no deformities normal mental status, non-focal exam Results - Laboratory Findings CBC and BMP: 01/19/18 02:53 01/19/18 02:53 ABG ABG pH 7.40 pH Units (7.32-7.45) 01/18/18 05:44 ABG pCO2 84 mmHg (35-45) H* 01/18/18 05:44 ABG pO2 78 mmHg (85-104) L 01/18/18 05:44 ABG O2 Saturation 94 % (95-98) L 01/18/18 05:44 PT/INR, D-dimer PT 21.2 Seconds (9.4-12.1) H 01/18/18 12:35 Abnormal lab findings: Abnormal lab results WBC 17.0 K/mcL (4.3-11.1) H 01/19/18 02:53 RBC 2.91 M/mcL (3.82-4.97) L 01/19/18 02:53 Hgb 9.6 g/dL (11.5-15.4) L 01/19/18 02:53 Hct 31.2 % (35.3-44.9) L 01/19/18 02:53 MCV 107.2 fL (83.0-100.0) H 01/19/18 02:53 MCHC 30.8 g/dL (31.6-35.5) L 01/19/18 02:53 Neutrophils # 14.2 K/mcL (1.6-8.9) H 01/19/18 02:53 Monocytes # 1.8 K/mcL (0.0-1.3) H 01/19/18 02:53 PT 21.2 Seconds (9.4-12.1) H 01/18/18 12:35 ABG pCO2 84 mmHg (35-45) H* 01/18/18 05:44 ABG pO2 78 mmHg (85-104) L 01/18/18 05:44 ABG HCO3 52 mEq/L (21-27) H 01/18/18 05:44 ABG Total CO2 55 mEq/L (20-26) H 01/18/18 05:44 ABG O2 Saturation 94 % (95-98) L 01/18/18 05:44 ABG Base Excess 24 mEq/L (-2 to 3) H 01/18/18 05:44 Chloride 87 mEq/L (98-107) L 01/19/18 02:53 Carbon Dioxide > 45 mEq/L (23-29) H* 01/19/18 02:53 BUN/Creatinine Ratio 34 (6-26) H 01/19/18 02:53 Glucose 115 mg/dL (70-105) H 01/19/18 02:53 POC Glucose 120 mg/dL (70-99) H 01/18/18 11:50 B-Natriuretic Peptide 754 pg/mL (Less than 100) H 01/17/18 16:16 Serum Total Protein 5.4 g/dL (6.4-8.9) L 01/18/18 07:07 - Clinical Findings Intake & Output: Intake & Output 01/18/18 01/18/18 01/19/18 15:59 23:59 07:59 Intake Total 50 / 50 120 / 120 200 / 200 Output Total 1999 / 1999 400 / 400 100 / 100 Balance -1950 / -1950 -280 / -280 100 / 100 Weight 67.132 kg - VTE Documentation of Mechanical Device: Intermittent pneumatic compression device Consult Discharge Plan - Plan Referrals: NONE,PCP [Primary Care Provider] - Eyad Humphreys [Family Provider] -
[2018-01-19] MEDS: Insulin LISPRO 300 UNITS/3 ML VIAL SQ SCH ×4 (08:06→21:34)
[2018-01-19] MEDS ORDERED: Isovue-370 500 ML INFUS..BTL IV ONE (08:43)
--- NOTE | 2018-01-19 09:17 | Cardiology Progress Note ---
Date of Encounter: 01/19/18 Time of Encounter: 08:30 Assessment and Plan (1) Diastolic heart failure Current Visit: Yes Status: Acute Suspect patient developed a COPD exacerbation initially which secondarily resulted in exacerbation of her known dysrhythmia and subsequently diastolic heart failure. Her LVEF is 50-55%. Recommend continuing to diurese - patient back on PO lasix. Will give dose of IV lasix today. Qualifiers: Heart failure chronicity: acute Qualified Code(s): I50.31 - Acute diastolic (congestive) heart failure (2) Atrial fibrillation with RVR Current Visit: Yes Status: Acute AFIB RVR not well controlled despite amiodarone drip and s/p thoracentesis with large fluid removal. Discussed case with Dr. Aguirre. They will perform CTA to look for pneumonia primarily which will also rule out PE. Eliquis is being restarted. Her home dose of metoprolol also being restarted. Discussion w patient/family: The assessment and plan as outlined above was discussed with the patient and/or family members who expressed understanding and agreement. All questions were answered. Thank you for involving us in the care of your patient. Please call with any questions. Subjective Principal diagnosis: CHF Interval history: Patient reports feeling better today with improved breathing. She underwent thoracentesis yesterday with removal of 1200 mL of fluid. Was placed on amiodarone - heart rates not well controlled. Denies palpitations, chest pain. Objective Vital Signs, Last 4 Hours Temp Pulse Resp BP Pulse Ox 01/19/18 08:07 150 18 124/63 95 01/19/18 07:00 98.0 F 132 16 117/79 100 General: Conversant, No Apparent Distress HEENT: Mucus Membranes Moist Cardiac: Other (irregularly irregular, soft murmur LSB) Lungs: Other (diminished air entry bilaterally, no rales wheeze or rhonchi) Neuro: Alert and responsive, No focal deficits noted Abdomen: Soft, Non-Tender, Other (bowel sounds present) Extremities: Other (mild bilateral LE edema) Results 01/19/18 02:53 01/19/18 02:53 Lab Results 01/18/18 01/18/18 01/18/18 07:07 10:34 12:35 WBC Hgb Hct Plt Count INR 1.9 1.9 APTT 29.0 Sodium Potassium Chloride Carbon Dioxide BUN Creatinine Glucose Calcium TSH 0.588 01/19/18 01/19/18 02:53 02:53 WBC 17.0 H Hgb 9.6 L Hct 31.2 L Plt Count 207 INR APTT Sodium 139 Potassium 4.0 Chloride 87 L Carbon Dioxide > 45 H* BUN 21 Creatinine 0.61 Glucose 115 H Calcium 9.0 TSH - Imaging and Cardiology Chest Xray: report reviewed (01/18/18) - EKG Interpretation EKG results cardiology: other (24h telemetry reviewed, average HR 128bpm, no other dysrhythmia or pauses) - VTE Documentation of Mechanical Device: Intermittent pneumatic compression device Consult Discharge Plan - Plan Referrals: NONE,PCP [Primary Care Provider] - Eyad Humphreys [Family Provider] -
[2018-01-19] MEDS ORDERED: Furosemide 40 MG/4 ML VIAL IVP ONE (09:27)
[2018-01-19] MEDS: BETAXOLOL HCL OP SCH (09:28)
[2018-01-19] MEDS: Patient Taking Own Medication 1 EACH OP SCH ×2 (09:29→21:15)
[2018-01-19] MEDS: Dorzolamide OPTH 10 ML BOTTLE BOTH EYES SCH ×2 (09:30→21:15)
[2018-01-19] MEDS: Furosemide 40 MG TABLET PO SCH ×2 (09:41→16:03)
--- NOTE | 2018-01-19 12:32 | Internal Med Progress Note ---
Date of Encounter: 01/19/18 Time of Encounter: 08:40 - Assessment and plan (1) Acute on chronic respiratory failure with hypoxia and hypercapnia Current Visit: Yes Status: Acute Assessment and plan: due to hydrostatic pulmonary edema, a.fib with RVR, Pneumonia and underlying COPD; plan as below; patient is on 4L/min via [place] supplemental O2 at home. (2) HCAP (healthcare-associated pneumonia) Current Visit: Yes Status: Acute Assessment and plan: CTA chest shows no PE but B/L multifocal airspace disease, concerning for Pneumonia; she also has worsening leukocytosis and tachycardia; d/w Pulmonology- started on IV Zosyn; nasal MRSA screen negative; initial blood cultures negative; to send sputum culture if obtained; procalcitonin pending; continue supplemental O2 and supportive care; (3) Atrial fibrillation with RVR Current Visit: Yes Status: Acute Assessment and plan: has h/o- a.fib, on Cardizem, Metoprolol and Eliquis at home; continues to have poorly controlled RVR; Cardiology on board; on IV Amiodarone drip, although not recommended for half-way use; will resume home Metoprolol, continue to hold Cardizem due to low normal BP; Telemetry monitoring, initial Troponin negative; Eliquis has been held for thoracentesis, resumed today; (4) Pleural effusion Current Visit: Yes Status: Acute Assessment and plan: right-sided pleural effusion, likely due to CHF, s/p thoracentesis, shows transudative fluid; (5) COPD (chronic obstructive pulmonary disease) Current Visit: Yes Status: Chronic Assessment and plan: has h/o- COPD on 4L/min O2 at home; not in acute exacerbation, steroids deferred ; continue PRN bronchodilator nebs, supplemental O2, BiPAP support; may need BiPAP qualification study overnight; Qualifiers: COPD type: emphysema Emphysema type: unspecified Qualified Code(s): J43.9 - Emphysema, unspecified (6) Diastolic heart failure Current Visit: Yes Status: Acute Assessment and plan: Echo shows preserved EF, indeterminate diastolic function, biatrial enlargement , mild MR, mild-moderate TR; continue PO Lasix, fluid restriction, urine output monitoring, beta favian, Telemetry monitoring; cardiology on board; Qualifiers: Heart failure chronicity: acute on chronic Qualified Code(s): I50.33 - Acute on chronic diastolic (congestive) heart failure (7) Hyperkalemia Current Visit: Yes Status: Resolved - Time Spent With Patient Total time spent is greater than 50% in coordination of care (as documented) at patient's floor/unit and/or counseling patient: - Subjective Interval history: Feels better; did not wear BiPAP continuously last night; improved shortness of breath; denies chest pain/tightness, palpitations; no nausea, vomiting, dizziness; - Constitutional Vitals: Temp Pulse Resp BP Pulse Ox 98.2 F 134 18 96/58 96 01/19/18 11:09 01/19/18 11:09 01/19/18 11:09 01/19/18 11:01/19/18 11:09 General appearance: Present: A&O X 3, answers questions appropriately - Respiratory Respiratory exam: Present: CTAB, rales (B/L faint crackles). Absent: accessory muscle use, rhonchi, wheezes - Cardiovascular Cardiovascular exam: Present: irregular rhythm, +S1, +S2, tachycardia. Absent: diastolic murmur, gallop, rubs, systolic murmur - GI/Abdominal GI/Abdominal exam: Present: normal bowel sounds, soft, no peritoneal signs. Absent: distended, tenderness - Extremities Exam Extremities exam: Present: full ROM, pedal edema, warm, radial pulses palpable and symmetrical. Absent: calf tenderness, cyanotic - Neurological Exam Neurological exam: Present: CN II-XII intact, oriented X3, no focal deficits. Absent: pronater drift, facial droop, speech deficit Internal Medicine: Result - Labs CBC & Chem 7: 01/19/18 02:53 01/19/18 02:53 Labs: Short CBC 01/19/18 Range/Units 02:53 WBC 17.0 H (4.3-11.1) K/mcL Hgb 9.6 L (11.5-15.4) g/dL Hct 31.2 L (35.3-44.9) % Plt Count 207 (140-400) K/mcL Neutrophils # 14.2 H (1.6-8.9) K/mcL BMP 01/19/18 02:53 Sodium 139 Potassium 4.0 Chloride 87 L Carbon Dioxide > 45 H* BUN 21 Creatinine 0.61 Glucose 115 H Calcium 9.0 - ABG Interpretation ABG results: ABG ABG pH 7.40 pH Units (7.32-7.45) 01/18/18 05:44 ABG pCO2 84 mmHg (35-45) H* 01/18/18 05:44 ABG pO2 78 mmHg (85-104) L 01/18/18 05:44 ABG O2 Saturation 94 % (95-98) L 01/18/18 05:44 PT/INR, D-dimer PT 21.2 Seconds (9.4-12.1) H 01/18/18 12:35 - Impressions Impressions Chest X-Ray 01/18/18 14:09 IMPRESSION: Decreased volume right pleural effusion with improved right lung expansion after thoracentesis. No pneumothorax. Tiny left effusion and background pulmonary edema persist. D/ / Sanket Wray / Sanket Wray Interpreting Provider: Sanket Wray Chest CTA 01/19/18 08:43 IMPRESSION: 1. No evidence of pulmonary embolism 2. Multifocal airspace disease on a background of pulmonary emphysema. The appearance is most compatible with multifocal pneumonia. The presence of bilateral pleural effusions raises the possibility of concurrent edema 3. Indeterminate 3 cm right adrenal mass. A metastatic lesion would have to be considered in the setting of a known malignancy D/ / Uvaldo Fry MD / Uvaldo Fry MD Interpreting Provider: Uvaldo Fry MD - VTE Documentation of Mechanical Device: Intermittent pneumatic compression device Consult Discharge Plan - Plan Referrals: NONE,PCP [Primary Care Provider] - Eyad Humphreys [Family Provider] -
[2018-01-19] MEDS ORDERED: Ipratropium/Albuterol Neb 3 ML IH PRN (12:42)
[2018-01-19] MEDS: Piperacillin/Tazobactam 3.375 GM in 0.9 % Sodium Chloride Mini Bag 100 ML IVPB SCH (16:04)
[2018-01-19] MEDS: Apixaban 5 MG TABLET PO SCH (21:13)
[2018-01-20] MEDS: Piperacillin/Tazobactam 3.375 GM in 0.9 % Sodium Chloride Mini Bag 100 ML IVPB SCH ×3 (00:20→16:25)
[2018-01-20] MEDS: Amiodarone Premix 360 MG/200 ML BAG IVC SCH (02:26)
[2018-01-20 04:58] LABS: Basophils % 0.1 %; Eosinophils % 0.2 %; Hematocrit 32.4 % (35.3-44.9); Hemoglobin 10.1 g/dL (11.5-15.4); Immature Granulocytes % 1.1 % (0-4); Lymphocytes # 1.3 K/mcL (0.6-4.6); Lymphocytes % 6.7 %; Mean Corpuscular HGB Conc 31.2 g/dL (31.6-35.5); Mean Corpuscular Hemoglobin 33.4 pg (28.0-33.3); Mean Corpuscular Volume 107.3 fL (83.0-100.0); Mean Platelet Volume 11.5 fL (9.4-12.4); Monocytes # 2.5 K/mcL (0.0-1.3); Monocytes % 13.4 %; Neutrophils # 14.6 K/mcL (1.6-8.9); Platelet Count 160 K/mcL (140-400); Red Blood Count 3.02 M/mcL (3.82-4.97); Red Cell Distribution Width 12.4 % (11.5-14.5); Segmented Neutrophils % 78.5 %
[2018-01-20 05:27] LABS: BUN/Creatinine Ratio 29 (6-26); Blood Urea Nitrogen 16 mg/dL (8-23); Calcium 8.2 mg/dL (8.6-10.3); Carbon Dioxide > 45 mEq/L (23-29); Chloride 84 mEq/L (98-107); Glucose 158 mg/dL (70-105); Magnesium 1.8 mg/dL (1.6-2.6); Osmolality,Calculated 296 (280-300); Potassium 3.7 mEq/L (3.5-5.1); Sodium 141 mEq/L (136-145); eGFR For Non-African Americans > 60 (> 60)
[2018-01-20] MEDS: Insulin LISPRO 300 UNITS/3 ML VIAL SQ SCH ×4 (07:43→21:02)
[2018-01-20] MEDS: Furosemide 40 MG TABLET PO SCH ×2 (08:07→16:27)
[2018-01-20] MEDS: Apixaban 5 MG TABLET PO SCH ×2 (08:07→21:02)
[2018-01-20] MEDS: Patient Taking Own Medication 1 EACH OP SCH ×2 (08:11→21:03)
[2018-01-20] MEDS: Dorzolamide OPTH 10 ML BOTTLE BOTH EYES SCH ×2 (08:11→21:03)
--- NOTE | 2018-01-20 09:36 | Cardiology Progress Note ---
Date of Encounter: 01/20/18 Time of Encounter: 09:00 Assessment and Plan (1) Diastolic heart failure Current Visit: Yes Status: Acute Per cardiology: -Suspect patient developed a COPD exacerbation initially which secondarily resulted in exacerbation of her known dysrhythmia and subsequently diastolic heart failure. -Her LVEF is 50-55%, indeterminate diastolic function (a.fib), no segmental wall motion abnormalities noted. -On lasix 40mg BID, currently net negative 4755ml. -Mild bilateral pedal edema noted, non-pitting. -Now back on previous O2 at 2.5LPM -Strict i/os, fluid restriction, daily weights. -Continue current regimen. -WIll continue to monitor. Qualifiers: Heart failure chronicity: acute on chronic Qualified Code(s): I50.33 - Acute on chronic diastolic (congestive) heart failure (2) Atrial fibrillation with RVR Current Visit: Yes Status: Acute Per cardiology: -AFIB RVR not well controlled despite amiodarone drip and s/p thoracentesis with large fluid removal. -Average HR previous 12 hours noted to be 116, a.fib. -On lopressor 25mg BID, unable to titrate further due to hypotension. On amiodarone 0.5mg/hour. -OF note, multifocal PNA noted per CT. -On eliquis for anticoagulation. -Continue current regimen, suspect HR will improve as clinical condition improves. -Will continue to monitor. Discussion w patient/family: The assessment and plan as outlined above was discussed with the patient and/or family members who expressed understanding and agreement. All questions were answered. Thank you for involving us in the care of your patient. Please call with any questions. Discussed and reviewed with . Subjective Principal diagnosis: CHF, a.fib, PNA Interval history: Patient reports breathing is somewhat improved, currently on O2 at 2.5LPM per nasal cannula. Denies palpitations or fluttering. Objective Vital Signs, Last 4 Hours Temp Pulse Resp BP 01/20/18 06:19 98.6 F 111 18 98/55 General: Conversant, No Apparent Distress HEENT: Atraumatic, Normocephaly, Mucus Membranes Moist Neck: No JVD, Normal carotid pulses Cardiac: Normal S1 and S2, No Murmur, Other (Irregularly irregular ) Lungs: Other (Lung sounds diminished throughout. ) Neuro: Alert and responsive, No focal deficits noted Abdomen: Soft, Non-Tender Skin: No rashes noted on visualized skin Musculoskeletal: No Chest Wall Tenderness Extremities: No Clubbing, No Cyanosis, Normal Pulses, Other (Mild bilateral pedal edema noted, non-pitting. ) Results 01/20/18 04:36 01/20/18 04:36 Lab Results Impressions Chest CTA 01/19/18 08:43 IMPRESSION: 1. No evidence of pulmonary embolism 2. Multifocal airspace disease on a background of pulmonary emphysema. The appearance is most compatible with multifocal pneumonia. The presence of bilateral pleural effusions raises the possibility of concurrent edema 3. Indeterminate 3 cm right adrenal mass. A metastatic lesion would have to be considered in the setting of a known malignancy D/ / Uvaldo Fry MD / Uvaldo Fry MD Interpreting Provider: Uvaldo Fry MD Active Medications Albuterol/Ipratropium (Duoneb) 3 ml IH [id number] PRN PRN Reason: Shortness Of Breath/Wheezing Stop: 07/21/18 12:43 Apixaban (Eliquis) 5 mg PO BID [facility] Stop: 07/21/18 21:01 Last Admin: 01/20/18 08:07 Dose: 5 mg Brimonidine Tartrate (Alphagan) 1 drop BOTH EYES TID [facility] Stop: 07/19/18 22:46 Last Admin: 01/20/18 08:11 Dose: 1 drop Budesonide/Formoterol Fumarate (Symbicort) 2 puff IH BIDR JUNIOR PRN Reason: Protocol Stop: 07/22/18 10:01 Dextrose/Water (Dextrose 50% (Syg)) 25 ml IVP AD PRN PRN Reason: Hypoglycemia Stop: 07/19/18 17:52 Dorzolamide HCl (Trusopt) 1 drop BOTH EYES BID JUNIOR Stop: 07/19/18 22:46 Last Admin: 01/20/18 08:11 Dose: 1 drop Furosemide (Lasix) 40 mg PO BIDDIURETIC JUNIOR Stop: 07/21/18 08:31 Last Admin: 01/20/18 08:07 Dose: 40 mg Glucagon (Glucagen) 1 mg IM ONCE PRN PRN Reason: Hypoglycemia Stop: 07/19/18 17:52 Glucose (Gluctose) 15 gm PO ONCE PRN PRN Reason: Hypoglycemia Stop: 07/19/18 17:52 Glucose (Gluctose) 30 gm PO ONCE PRN PRN Reason: Hypoglycemia Stop: 07/19/18 17:52 Amiodarone HCl/Dextrose (Amiodarone Drip Premix 360mg/200ml) 360 mg in 200 mls @ 16.667 mls/hr IVC CONT JUNIOR PRN Reason: 0.5 MG/MIN Stop: 07/20/18 16:01 Last Admin: 01/20/18 02:26 Dose: 0.5 mg/min, 16.667 mls/hr Dextrose (Dextrose 5%) 1,000 mls @ 100 mls/hr IVC .Q10H PRN PRN Reason: HYPOGLYCEMIA Stop: 07/19/18 17:52 Piperacillin Sod/Tazobactam (Sod 3.375 gm/ Sodium Chloride) 100 mls @ 25 mls/ hr IVPB Q8HR [facility] Stop: 07/21/18 16:01 Last Admin: 01/20/18 08:07 Dose: 25 mls/hr Insulin Human Lispro (Humalog) 0 units SQ ACHS JUNIOR PRN Reason: Protocol Stop: 07/20/18 17:01 Last Admin: 01/20/18 07:43 Dose: Not Given Metoprolol Tartrate (Lopressor) 25 mg PO BID [facility] Stop: 07/21/18 09:26 Last Admin: 01/20/18 08:07 Dose: 25 mg Montelukast Sodium (Singulair) 10 mg PO DAILY [facility] Stop: 07/22/18 09:01 Last Admin: 01/20/18 08:07 Dose: 10 mg Naloxone HCl (Narcan) 0.4 mg IVP Q2MIN PRN PRN Reason: SEE COMMENTS Stop: 07/19/18 16:13 Pharmacy Profile Note (Patient Taking Own Medication) 1 each OP QAM [facility] Stop: 07/20/18 09:01 Last Admin: 01/20/18 08:11 Dose: 1 each Pharmacy Profile Note (Patient Taking Own Medication) 1 each OP HS [facility] Stop: 07/19/18 23:16 Last Admin: 01/19/18 21:15 Dose: 1 each Laboratory Tests 01/17/18 01/17/18 01/18/18 10:03 10:03 07:07 WBC Hgb Potassium Creatinine Magnesium Troponin I < 0.03 B-Natriuretic Peptide 1004 H TSH 0.588 01/20/18 01/20/18 04:36 04:36 WBC 18.6 H Hgb 10.1 L Potassium 3.7 Creatinine 0.55 L Magnesium 1.8 Troponin I B-Natriuretic Peptide TSH - Imaging and Cardiology Chest Xray: report reviewed Echo: report reviewed - EKG Interpretation EKG results cardiology: other (Telemetry reviewed with average HR previous 12 hours noted to be 116, a.fib. PVCs noted.) - VTE Documentation of Mechanical Device: Intermittent pneumatic compression device Consult Discharge Plan - Plan Referrals: Annamarie Michaels, [employer] SURVEILLANCE OPERATOR [Partnered Physician] - (Office will call patient) NONE,PCP [Primary Care Provider] - (Patient is from [place], Will make own follow up when she gets home)
--- NOTE | 2018-01-20 09:54 | Pulmonology Progress Note ---
<ShenLaurelRonaldo C - Last Filed: 01/20/18 10:50> Date of Encounter: 01/20/18 Time of Encounter: 09:47 Assessment and Plan (1) HCAP (healthcare-associated pneumonia) Current Visit: Yes Status: Acute Patients increasing white count indicated necessity for chest CT indicating multifocal infiltrates This is in the setting of multiple recent hospitalizations for respiratory failure Patient started on IV Zosyn empirically, blood cultures pending, patient as of yet unable to produce sputum Plan to de-escalate antibiotics with blood culture sensitivities, she will likely require another 7-10 days of antibiotics Will continue to monitor white count and clinical condition, can not really gauge based on tachycardia as patient is AFib RVR, patient does not meet Sepsis criteria (2) Acute on chronic respiratory failure with hypoxia and hypercapnia Current Visit: Yes Status: Acute This is multifactorial secondary to decompensated heaert failure and underlying COPD Cardiology is consulted who is recommending continued diuresis with Lasix 40mg PO BID, which has shown clinical improvement Patient is saturating well on 3LNC, and is receiving NIV at night, which should continue CT showed multifocal infiltrates likely representing pneumonia, patient is on Zosyn, antibiotics can be de-escalated with blood cultures which are pending, patient has not been able to produce sputum cultures (3) COPD (chronic obstructive pulmonary disease) Current Visit: Yes Status: Chronic Patient has history of COPD, she is not believed to be in exacerbation at this point She can continue with maintenance bronchodilators without need for steroids as she is clinically improving She is currently on antibiotics for suspected pneumonia Qualifiers: COPD type: emphysema Emphysema type: unspecified Qualified Code(s): J43.9 - Emphysema, unspecified (4) Acute decompensated heart failure Current Visit: Yes Status: Acute Echocardiogram demonstrated LVEF 50-55%, indeterminate diastolic dysfunction Currently diuresing with Lasix 40mg PO BID, she is net negative almost 5 L, requiring less oxygen Plan to continue diuresis while monitoring I&O (5) Atrial fibrillation with RVR Current Visit: Yes Status: Acute Patient remains tachycardic this morning, without complaints of chest pain or palpitations She is on Lopressor 25mg BID, unable to increase due to borderline hypotension She is also on amiodarone drip 0.5mg per hour and Eliquis for anticoagulation Cardiology recommendation is to continue this current course of treatment with suspicion that tachycardia will resolve with clinical disposition, agreed (6) Pleural effusion Current Visit: Yes Status: Acute Thoracentesis 2 days ago removed 1.2L without complication Cytology indicated transudative effusion which was likely due to heart failure Patients heart failure is currently being managed and clinical condition is improving, repeat thoracentesis will likely be unnecessary if improvement continues (7) Leucocytosis Current Visit: Yes Status: Acute WBC again elevated from 17.0 to 18.6, with CT finding of multifocal infiltrates yesterday Patient currently on IV Zosyn, clinical condition improving, afebrile Qualifiers: Leukocytosis type: unspecified Qualified Code(s): D72.829 - Elevated white blood cell count, unspecified Subjective Principal diagnosis: CHF, a.fib, PNA Interval history: Mrs. Hayward did well overnight. Her main complaint this morning is fatigue and shortness of breath. She describes both as no worse than yesterday. I discussed with her and her the current course of care including diuretic management of her heart failure, rate control of her AFib, antibiotic management of her pneumonia, and maintenance bronchodilators for management of her baseline COPD. She is still in AFib RVR this morning but denies any chest pain. White count again elevated this morning from 17 to 18.6 but she denies fever. Objective PUL Vital signs: Last Vital Signs Temp 98.6 F 01/20/18 06:19 Pulse 111 01/20/18 06:19 Resp 18 01/20/18 06:19 BP 98/55 01/20/18 06:19 Pulse Ox 99 01/20/18 00:20 General appearance: no acute distress, asleep Patient in no acute distress Alert and oriented x 3 Skin warm and dry, no cyanosis, jaundice or pallor Lungs exhibit diffuse rales, diminished breath sounds throughout, no wheeze or rhonchorous breath sounds Heart tachycardic and in irregular rhythm Abdomen soft and non tender with normal bowel sounds Lower extremities without edema or erythema or calf tenderness Results - Laboratory Findings CBC and BMP: 01/20/18 04:36 01/20/18 04:36 ABG ABG pH 7.40 pH Units (7.32-7.45) 01/18/18 05:44 ABG pCO2 84 mmHg (35-45) H* 01/18/18 05:44 ABG pO2 78 mmHg (85-104) L 01/18/18 05:44 ABG O2 Saturation 94 % (95-98) L 01/18/18 05:44 PT/INR, D-dimer PT 21.2 Seconds (9.4-12.1) H 01/18/18 12:35 Abnormal lab findings: Abnormal lab results WBC 18.6 K/mcL (4.3-11.1) H 01/20/18 04:36 RBC 3.02 M/mcL (3.82-4.97) L 01/20/18 04:36 Hgb 10.1 g/dL (11.5-15.4) L 01/20/18 04:36 Hct 32.4 % (35.3-44.9) L 01/20/18 04:36 MCV 107.3 fL (83.0-100.0) H 01/20/18 04:36 MCH 33.4 pg (28.0-33.3) H 01/20/18 04:36 MCHC 31.2 g/dL (31.6-35.5) L 01/20/18 04:36 Neutrophils # 14.6 K/mcL (1.6-8.9) H 01/20/18 04:36 Monocytes # 2.5 K/mcL (0.0-1.3) H 01/20/18 04:36 PT 21.2 Seconds (9.4-12.1) H 01/18/18 12:35 ABG pCO2 84 mmHg (35-45) H* 01/18/18 05:44 ABG pO2 78 mmHg (85-104) L 01/18/18 05:44 ABG HCO3 52 mEq/L (21-27) H 01/18/18 05:44 ABG Total CO2 55 mEq/L (20-26) H 01/18/18 05:44 ABG O2 Saturation 94 % (95-98) L 01/18/18 05:44 ABG Base Excess 24 mEq/L (-2 to 3) H 01/18/18 05:44 Chloride 84 mEq/L (98-107) L 01/20/18 04:36 Carbon Dioxide > 45 mEq/L (23-29) H* 01/20/18 04:36 Creatinine 0.55 mg/dL (0.60-1.20) L 01/20/18 04:36 BUN/Creatinine Ratio 29 (6-26) H 01/20/18 04:36 Glucose 158 mg/dL (70-105) H 01/20/18 04:36 POC Glucose 134 mg/dL (70-99) H 01/18/18 18:37 Calcium 8.2 mg/dL (8.6-10.3) L 01/20/18 04:36 B-Natriuretic Peptide 754 pg/mL (Less than 100) H 01/17/18 16:16 Serum Total Protein 5.4 g/dL (6.4-8.9) L 01/18/18 07:07 - Clinical Findings Intake & Output: Intake & Output 01/19/18 01/20/18 01/20/18 23:59 07:59 15:59 Intake Total 220 / 220 300 / 300 240 / 240 Output Total 350 / 350 750 / 750 Balance -130 / -130 -450 / -450 240 / 240 Weight 66 kg - VTE Documentation of Mechanical Device: Intermittent pneumatic compression device Consult Discharge Plan - Plan Referrals: Annamarie Michaels, CONCRETE BATCHER [Partnered Physician] - (Office will call patient) NONE,PCP [Primary Care Provider] - (Patient is from [place], Will make own follow up when she gets home) <Michael Proctor - Last Filed: 01/20/18 16:35> Date of Encounter: 01/20/18 Objective PUL Vital signs: Last Vital Signs Temp 98.6 F 01/20/18 15:19 Pulse 110 01/20/18 15:19 Resp 18 01/20/18 15:19 BP 102/57 01/20/18 15:19 Pulse Ox 96 01/20/18 15:19 Results - Laboratory Findings CBC and BMP: 01/20/18 04:36 01/20/18 04:36 ABG ABG pH 7.40 pH Units (7.32-7.45) 01/18/18 05:44 ABG pCO2 84 mmHg (35-45) H* 01/18/18 05:44 ABG pO2 78 mmHg (85-104) L 01/18/18 05:44 ABG O2 Saturation 94 % (95-98) L 01/18/18 05:44 PT/INR, D-dimer PT 21.2 Seconds (9.4-12.1) H 01/18/18 12:35 Abnormal lab findings: Abnormal lab results WBC 18.6 K/mcL (4.3-11.1) H 01/20/18 04:36 RBC 3.02 M/mcL (3.82-4.97) L 01/20/18 04:36 Hgb 10.1 g/dL (11.5-15.4) L 01/20/18 04:36 Hct 32.4 % (35.3-44.9) L 01/20/18 04:36 MCV 107.3 fL (83.0-100.0) H 01/20/18 04:36 MCH 33.4 pg (28.0-33.3) H 01/20/18 04:36 MCHC 31.2 g/dL (31.6-35.5) L 01/20/18 04:36 Neutrophils # 14.6 K/mcL (1.6-8.9) H 01/20/18 04:36 Monocytes # 2.5 K/mcL (0.0-1.3) H 01/20/18 04:36 PT 21.2 Seconds (9.4-12.1) H 01/18/18 12:35 ABG pCO2 84 mmHg (35-45) H* 01/18/18 05:44 ABG pO2 78 mmHg (85-104) L 01/18/18 05:44 ABG HCO3 52 mEq/L (21-27) H 01/18/18 05:44 ABG Total CO2 55 mEq/L (20-26) H 01/18/18 05:44 ABG O2 Saturation 94 % (95-98) L 01/18/18 05:44 ABG Base Excess 24 mEq/L (-2 to 3) H 01/18/18 05:44 Chloride 84 mEq/L (98-107) L 01/20/18 04:36 Carbon Dioxide > 45 mEq/L (23-29) H* 01/20/18 04:36 Creatinine 0.55 mg/dL (0.60-1.20) L 01/20/18 04:36 BUN/Creatinine Ratio 29 (6-26) H 01/20/18 04:36 Glucose 158 mg/dL (70-105) H 01/20/18 04:36 POC Glucose 115 mg/dL (70-99) H 01/20/18 07:28 Hemoglobin A1c 5.8 % (-5.6) H 01/20/18 04:36 Calcium 8.2 mg/dL (8.6-10.3) L 01/20/18 04:36 B-Natriuretic Peptide 754 pg/mL (Less than 100) H 01/17/18 16:16 Serum Total Protein 5.4 g/dL (6.4-8.9) L 01/18/18 07:07 - Clinical Findings Intake & Output: Intake & Output 01/20/18 01/20/18 01/20/18 07:59 15:59 23:59 Intake Total 300 / 300 580 / 580 Output Total 750 / 750 850 / 850 Balance -450 / -450 -270 / -270 - Attending Attestation I examined this patient and my medical decision-making was reviewed with the Resident Physician. I agree with the documented findings, disposition and treatment plan as described except to the extent set forth below. Patient seen and examined. Labs, radiology, chart personally reviewed. 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 Patient has diagnosis of COPD and resume her Symbicort and titrate oxygen to keep SPO2 around 90%. The patient would like to go back to [place] and she does not have a history of cryptococcus infection in the past. I suspect her underlying cardiac disease has also playing a major role for her presenting symptoms.
[2018-01-20] MEDS: Budesonide/Formoterol 160/4.5 MDI IH SCH ×2 (11:45→22:06)
--- NOTE | 2018-01-20 12:31 | Internal Med Progress Note ---
Hospitalist Progress Note - Encounter Date of Encounter: 01/20/18 Time of Encounter: 12:29 - Subjective Interval History: Patient is still has fatigue and shortness of breath but slight better. She is back to home oxygen level 2.5 L by nasal cannula today. Review the lab with stranding of white count but no fever. Patient is still is in A. fib with RVR heart rate is staying around 100-120s. Patient denies fever or chills nausea vomiting headache dizziness chest pain abdominal pain urinary bowel complaint. - Exam Vitals: Temp Pulse Resp BP Pulse Ox 98.7 F 111 17 116/67 93 01/20/18 12:06 01/20/18 12:06 01/20/18 12:06 01/20/18 12:06 01/20/18 12:06 Exam: General appearance: No acute distress, A&O X 3 Head exam: Atraumatic Eye exam: EOMI, PERRLA ENT exam: Moist oral mucosa Neck nontender, supple Respiratory exam: Rales bilateral more on right side. No rhonchi or wheezing Cardiovascular exam: Tachycardia with irregular rhythm, no systolic murmur Abdominal exam: Soft, nontender, nondistended, positive bowel sounds Extremities exam: No calf tenderness, trace pedal edema Present: Skin- warm, dry, intact Neurological exam: Grossly CN II-XII intact, no focal deficits. No facial droop. Normal speech. - Assessment and Plan (1) HCAP (healthcare-associated pneumonia) Current Visit: Yes Status: Acute Assessment and Plan: Most likely multifocal pneumonia. CTA chest shows no PE but B/L multifocal airspace disease. Slight worsening leukocytosis but clinically appear better therefore will continue IV Zosyn, oxygen supplementation, nebulization with close monitoring. Pulmonologists on board. A sterile awaiting good sample for a sputum culture. nasal MRSA screen negative; initial blood cultures negative; to send sputum culture if obtained; procalcitonin level less than 0.07. (2) Atrial fibrillation with RVR Current Visit: Yes Status: Acute Assessment and Plan: has h/o- a.fib, on Cardizem, Metoprolol and Eliquis at home. continues to have poorly controlled RVR; Cardiology on board; on IV Amiodarone drip, although not recommended for shelter use. A started Metoprolol but not able to titrate due to low blood pressure. Telemetry monitoring, initial Troponin negative. Continue Eliquis (3) Pleural effusion Current Visit: Yes Status: Acute Assessment and Plan: right-sided pleural effusion status post thoracentesis more than 1 L, transudative fluid most likely due to CHF (4) COPD (chronic obstructive pulmonary disease) Current Visit: Yes Status: Chronic Assessment and Plan: Does not appear in acute exacerbation. has h/o- COPD on 4L/min O2 at home. continue PRN bronchodilator nebs, supplemental O2, BiPAP support; may need BiPAP qualification study overnight; (5) Acute on chronic respiratory failure with hypoxia and hypercapnia Current Visit: Yes Status: Acute Assessment and Plan: Multifactorial due to hydrostatic pulmonary edema, a.fib with RVR, Pneumonia and underlying COPD. improving (6) Acute decompensated heart failure Current Visit: Yes Status: Acute Assessment and Plan: Exacerbation most likely due to exacerbation of her known dysrhythmia . EF 50- 55%, indeterminate diastolic function due to A. fib, no segmental wall motion abnormalities. Continue Lasix 40 mg twice a day-at present negative balance. Continue strict I&O's, fluid restriction, daily weight. Cardiology on board (7) Leucocytosis Current Visit: Yes Status: Acute Assessment and Plan: No fever. Trending of white count even on antibiotic but clinically appear better therefore will continue to monitor on same regime. Blood culture with no growth yet. (8) DVT prophylaxis Current Visit: Yes Status: Acute Assessment and Plan: SCDs, on Eliquis - Time Spent with Patient Total time spent is greater than 50% in coordination of care (as documented) at patient's floor/unit and/or counseling patient: Greater than 35 minutes Plan of Care Discussed with: patient (Spent more than 35 minute inpatient care, communication with patient, nursing staff and consultants) Internal Medicine: Result - Labs CBC & Chem 7: 01/20/18 04:36 01/20/18 04:36 Labs: Short CBC 01/20/18 Range/Units 04:36 WBC 18.6 H (4.3-11.1) K/mcL Hgb 10.1 L (11.5-15.4) g/dL Hct 32.4 L (35.3-44.9) % Plt Count 160 (140-400) K/mcL Neutrophils # 14.6 H (1.6-8.9) K/mcL BMP 01/20/18 04:36 Sodium 141 Potassium 3.7 Chloride 84 L Carbon Dioxide > 45 H* BUN 16 Creatinine 0.55 L Glucose 158 H Calcium 8.2 L - ABG Interpretation ABG results: ABG ABG pH 7.40 pH Units (7.32-7.45) 01/18/18 05:44 ABG pCO2 84 mmHg (35-45) H* 01/18/18 05:44 ABG pO2 78 mmHg (85-104) L 01/18/18 05:44 ABG O2 Saturation 94 % (95-98) L 01/18/18 05:44 PT/INR, D-dimer PT 21.2 Seconds (9.4-12.1) H 01/18/18 12:35 - VTE Documentation of Mechanical Device: Intermittent pneumatic compression device Consult Discharge Plan - Plan Referrals: Annamarie Michaels, CALENDER WIND UP HELPER [Partnered Physician] - (Office will call patient) NONE,PCP [Primary Care Provider] - (Patient is from [place], Will make own follow up when she gets home) (4) COPD (chronic obstructive pulmonary disease) Qualifiers: COPD type: emphysema Emphysema type: unspecified Qualified Code(s): J43.9 - Emphysema, unspecified (7) Leucocytosis Qualifiers: Leukocytosis type: unspecified Qualified Code(s): D72.829 - Elevated white blood cell count, unspecified
[2018-01-20 13:40] LABS: Estimated Average Glucose 120 mg/dl; Hemoglobin A1C 5.8 %
[2018-01-21] MEDS: Piperacillin/Tazobactam 3.375 GM in 0.9 % Sodium Chloride Mini Bag 100 ML IVPB SCH ×3 (00:47→15:55)
[2018-01-21] MEDS: Amiodarone Premix 360 MG/200 ML BAG IVC SCH (02:58)
[2018-01-21] MEDS: Budesonide/Formoterol 160/4.5 MDI IH SCH ×2 (07:27→20:15)
[2018-01-21 08:05] LABS: Basophils % 0.2 %; Eosinophils # 0.1 K/mcL (0.0-0.6); Eosinophils % 0.8 %; Hematocrit 29.5 % (35.3-44.9); Hemoglobin 9.5 g/dL (11.5-15.4); Lymphocytes # 0.9 K/mcL (0.6-4.6); Lymphocytes % 7.6 %; Mean Corpuscular HGB Conc 32.2 g/dL (31.6-35.5); Mean Corpuscular Hemoglobin 33.1 pg (28.0-33.3); Mean Corpuscular Volume 102.8 fL (83.0-100.0); Mean Platelet Volume 10.9 fL (9.4-12.4); Monocytes # 1.6 K/mcL (0.0-1.3); Monocytes % 13.4 %; Neutrophils # 9.4 K/mcL (1.6-8.9); Platelet Count 145 K/mcL (140-400); Red Blood Count 2.87 M/mcL (3.82-4.97); Red Cell Distribution Width 12.3 % (11.5-14.5)
[2018-01-21] MEDS: Insulin LISPRO 300 UNITS/3 ML VIAL SQ SCH ×4 (08:13→21:01)
[2018-01-21] MEDS: Furosemide 40 MG TABLET PO SCH ×2 (08:30→15:54)
[2018-01-21] MEDS: Apixaban 5 MG TABLET PO SCH ×2 (08:30→21:00)
[2018-01-21] MEDS: Dorzolamide OPTH 10 ML BOTTLE BOTH EYES SCH ×2 (08:32→21:00)
[2018-01-21] MEDS: Patient Taking Own Medication 1 EACH OP SCH ×2 (08:33→21:02)
[2018-01-21 08:38] LABS: BUN/Creatinine Ratio 16 (6-26); Blood Urea Nitrogen 8 mg/dL (8-23); Calcium 7.5 mg/dL (8.6-10.3); Carbon Dioxide > 45 mEq/L (23-29); Chloride 80 mEq/L (98-107); Glucose 101 mg/dL (70-105); Osmolality,Calculated 280 (280-300); Sodium 136 mEq/L (136-145); eGFR For Non-African Americans > 60 (> 60)
[2018-01-21] MEDS ORDERED: Pantoprazole 40 MG VIAL IVP SCH (09:00)
--- NOTE | 2018-01-21 09:51 | Cardiology Progress Note ---
Date of Encounter: 01/21/18 Time of Encounter: 08:30 Assessment and Plan (1) Diastolic heart failure Current Visit: Yes Status: Acute Per cardiology: -Suspect patient developed a COPD exacerbation initially which secondarily resulted in exacerbation of her known dysrhythmia and subsequently diastolic heart failure. -Her LVEF is 50-55%, indeterminate diastolic function (a.fib), no segmental wall motion abnormalities noted. -On lasix 40mg BID, currently net negative 5785ml. -Euvolemic on exam. -Now back on previous O2 at 2 LPM. States breathing is back to her baseline. -Strict i/os, fluid restriction, daily weights. -Continue current regimen. -Will continue to monitor. Qualifiers: Heart failure chronicity: acute on chronic Qualified Code(s): I50.33 - Acute on chronic diastolic (congestive) heart failure (2) Atrial fibrillation with RVR Current Visit: Yes Status: Acute Per cardiology: -AFIB RVR not well controlled despite amiodarone drip and s/p thoracentesis with large fluid removal. -Average HR previous 12 hours noted to be 110, a.fib. -On lopressor 25mg BID, unable to titrate further due to hypotension. On amiodarone 0.5mg/hour. -OF note, multifocal PNA noted per CT. -On eliquis for anticoagulation. -of note, K 3 today. - Discussed and reviewed with , will give IV digoxin load today. -Will replace K. -Will continue to monitor. Discussion w patient/family: The assessment and plan as outlined above was discussed with the patient and/or family members who expressed understanding and agreement. All questions were answered. Thank you for involving us in the care of your patient. Please call with any questions. Discussed and reviewed with . Subjective Principal diagnosis: CHF, a.fib, PNA Interval history: Patient reports breathing is back to her baseline, currently on O2 at 2 LPM per nasal cannula. Denies palpitations or fluttering. Objective Vital Signs, Last 4 Hours Temp Pulse Resp BP Pulse Ox 01/21/18 07:30 18 96 01/21/18 07:09 98.2 F 103 16 92/54 97 General: Conversant, No Apparent Distress HEENT: Atraumatic, Normocephaly, Mucus Membranes Moist Neck: No JVD, Normal carotid pulses Cardiac: Normal S1 and S2, No Murmur, Other (Irregularly irregular ) Lungs: Normal Breath Sounds, No Wheeze, Rales, Rhonchi Neuro: Alert and responsive, No focal deficits noted Abdomen: Soft, Non-Tender Skin: No rashes noted on visualized skin Musculoskeletal: No Chest Wall Tenderness Extremities: No Clubbing, No Cyanosis, No Edema, Normal Pulses Results 01/21/18 07:48 01/21/18 07:48 Lab Results Active Medications Albuterol/Ipratropium (Duoneb) 3 ml IH [id number] PRN PRN Reason: Shortness Of Breath/Wheezing Stop: 07/21/18 12:43 Apixaban (Eliquis) 5 mg PO BID [facility] Stop: 07/21/18 21:01 Last Admin: 01/21/18 08:30 Dose: 5 mg Brimonidine Tartrate (Alphagan) 1 drop BOTH EYES TID [facility] Stop: 07/19/18 22:46 Last Admin: 01/21/18 08:33 Dose: 1 drop Budesonide/Formoterol Fumarate (Symbicort) 2 puff IH BIDR JUNIOR PRN Reason: Protocol Stop: 07/22/18 10:01 Last Admin: 01/21/18 07:27 Dose: 2 puff Dextrose/Water (Dextrose 50% (Syg)) 25 ml IVP AD PRN PRN Reason: Hypoglycemia Stop: 07/19/18 17:52 Dorzolamide HCl (Trusopt) 1 drop BOTH EYES BID [facility] Stop: 07/19/18 22:46 Last Admin: 01/21/18 08:32 Dose: 1 drop Furosemide (Lasix) 40 mg PO BIDDIURETIC [facility] Stop: 07/21/18 08:31 Last Admin: 01/21/18 08:30 Dose: 40 mg Glucagon (Glucagen) 1 mg IM ONCE PRN PRN Reason: Hypoglycemia Stop: 07/19/18 17:52 Glucose (Gluctose) 15 gm PO ONCE PRN PRN Reason: Hypoglycemia Stop: 07/19/18 17:52 Glucose (Gluctose) 30 gm PO ONCE PRN PRN Reason: Hypoglycemia Stop: 07/19/18 17:52 Amiodarone HCl/Dextrose (Amiodarone Drip Premix 360mg/200ml) 360 mg in 200 mls @ 16.667 mls/hr IVC CONT JUNIOR PRN Reason: 0.5 MG/MIN Stop: 07/20/18 16:01 Last Admin: 01/21/18 02:58 Dose: 0.5 mg/min, 16.667 mls/hr Dextrose (Dextrose 5%) 1,000 mls @ 100 mls/hr IVC .Q10H PRN PRN Reason: HYPOGLYCEMIA Stop: 07/19/18 17:52 Piperacillin Sod/Tazobactam (Sod 3.375 gm/ Sodium Chloride) 100 mls @ 25 mls/ hr IVPB Q8HR [facility] Stop: 07/21/18 16:01 Last Admin: 01/21/18 08:33 Dose: 25 mls/hr Insulin Human Lispro (Humalog) 0 units SQ ACHS JUNIOR PRN Reason: Protocol Stop: 07/20/18 17:01 Last Admin: 01/21/18 08:13 Dose: Not Given Metoprolol Tartrate (Lopressor) 25 mg PO BID [facility] Stop: 07/21/18 09:26 Last Admin: 01/21/18 08:30 Dose: 25 mg Montelukast Sodium (Singulair) 10 mg PO DAILY [facility] Stop: 07/22/18 09:01 Last Admin: 01/21/18 08:30 Dose: 10 mg Naloxone HCl (Narcan) 0.4 mg IVP Q2MIN PRN PRN Reason: SEE COMMENTS Stop: 07/19/18 16:13 Pantoprazole Sodium (Protonix) 40 mg IVP DAILY [facility] Stop: 07/23/18 09:01 Last Admin: 01/21/18 08:33 Dose: 40 mg Pharmacy Profile Note (Patient Taking Own Medication) 1 each OP QAM [facility] Stop: 07/20/18 09:01 Last Admin: 01/21/18 08:33 Dose: 1 each Pharmacy Profile Note (Patient Taking Own Medication) 1 each OP HS [facility] Stop: 07/19/18 23:16 Last Admin: 01/20/18 21:03 Dose: 1 each Laboratory Tests 01/20/18 01/21/18 01/21/18 04:36 07:48 07:48 WBC 12.2 H Hgb 10.1 L 9.5 L Potassium 3.0 L Creatinine 0.51 L - Imaging and Cardiology Chest Xray: report reviewed Echo: report reviewed - EKG Interpretation EKG results cardiology: other (Telemetry reviewed with average HR previous 12 hours noted to be 110, atrial fibrillation.) - VTE Documentation of Mechanical Device: Intermittent pneumatic compression device Consult Discharge Plan - Plan Referrals: Annamarie Michaels CNP [Partnered Physician] - (Office will call patient) NONE,PCP [Primary Care Provider] - (Patient is from [place], Will make own follow up when she gets home)
[2018-01-21] MEDS ORDERED: *HR* Digoxin 0.5 MG/2 ML AMPUL IVP ONE (10:00)
--- NOTE | 2018-01-21 11:02 | Pulmonology Progress Note ---
<ShenRonadlo Mccoy - Last Filed: 01/21/18 10:56> Date of Encounter: 01/21/18 Time of Encounter: 10:56 Assessment and Plan (1) HCAP (healthcare-associated pneumonia) Current Visit: Yes Status: Acute White count decreased from 18.6 to 12.2 today. Patient still on Zosyn, cultures pending for de-escalation. Clinical condition improved, will continue to monitor white count, labs, and clinical condition. Patient from [place], cryptococcus considered but patient does not have a history or the clinical presentation. (2) Acute on chronic respiratory failure with hypoxia and hypercapnia Current Visit: Yes Status: Acute Patient saturating well on nasal cannula, clinical situation improved, cardiology recommending continued diuresis Clinical condition and vitals do not warrant repeat blood gas at this time, will continue to monitor Recommending continued supplemental oxygen titrated to saturation >90%, NIV at night (3) COPD (chronic obstructive pulmonary disease) Current Visit: Yes Status: Chronic Patient has history of COPD, she is not believed to be in exacerbation at this point Symbicort added for symptomatic relief and maintenance Continue bronchodilators, supplemental oxygen, NIV at night Qualifiers: COPD type: emphysema Emphysema type: unspecified Qualified Code(s): J43.9 - Emphysema, unspecified (4) Acute decompensated heart failure Current Visit: Yes Status: Acute Echocardiogram demonstrated LVEF 50-55%, indeterminate diastolic dysfunction Currently diuresing with Lasix 40mg PO BID, she is net negative almost 6 L, requiring less oxygen Plan to continue diuresis while monitoring I&O (5) Atrial fibrillation with RVR Current Visit: Yes Status: Acute Patient remains tachycardic this morning, without complaints of chest pain or palpitations She is on Lopressor 25mg BID, unable to increase due to borderline hypotension She is also on amiodarone drip 0.5mg per hour, eliquis for anticoagulation Cardiology plans to initiate digoxin today (6) Pleural effusion Current Visit: Yes Status: Acute Thoracentesis 3 days ago removed 1.2L without complication Cytology indicated transudative effusion which was likely due to heart failure Patients heart failure is currently being managed and clinical condition is improving repeat thoracentesis will likely be unnecessary if improvement continues (7) Leucocytosis Current Visit: Yes Status: Acute WBC decreased from 18.6 to 12.2, with CT finding of multifocal infiltrates Patient currently on IV Zosyn, clinical condition improving, afebrile Qualifiers: Leukocytosis type: unspecified Qualified Code(s): D72.829 - Elevated white blood cell count, unspecified Subjective Principal diagnosis: CHF, a.fib, PNA Interval history: Ms. Hayward looks and feels better this morning. Her white count decreased from 18.6 to 12.2 today. She also feels less lethargic than yesterday. I informed her and her that the plan is to continue the current treatment plan for her respiratory disease including antibiotics, symbicort, bronchodilators, supplemental oxygen, and NIV at night. Objective PUL Vital signs: Last Vital Signs Temp 98.2 F 01/21/18 07:09 Pulse 112 01/21/18 09:00 Resp 16 01/21/18 09:00 BP 87/42 01/21/18 09:00 Pulse Ox 99 01/21/18 09:00 General appearance: no acute distress Eyes: nonicteric ENT: oropharynx moist Neck: supple Effort: mildly labored Auscultation: left: other (coarse), right: wheezes, rales Percussion: bilateral: not dull Tactile fremitus: bilateral: normal Cardiovascular: irregular rhythm, other (tachycardia) Gastrointestinal: normoactive bowel sounds, non-distended Integumentary: normal Extremities: no cyanosis, no clubbing, other (mild non pitting edema) Musculoskeletal: no deformities, ROM normal normal mental status, non-focal exam mood appropriate, affect normal Results - Laboratory Findings CBC and BMP: 01/21/18 07:48 01/21/18 07:48 ABG ABG pH 7.40 pH Units (7.32-7.45) 01/18/18 05:44 ABG pCO2 84 mmHg (35-45) H* 01/18/18 05:44 ABG pO2 78 mmHg (85-104) L 01/18/18 05:44 ABG O2 Saturation 94 % (95-98) L 01/18/18 05:44 PT/INR, D-dimer PT 21.2 Seconds (9.4-12.1) H 01/18/18 12:35 Abnormal lab findings: Abnormal lab results WBC 12.2 K/mcL (4.3-11.1) H 01/21/18 07:48 RBC 2.87 M/mcL (3.82-4.97) L 01/21/18 07:48 Hgb 9.5 g/dL (11.5-15.4) L 01/21/18 07:48 Hct 29.5 % (35.3-44.9) L 01/21/18 07:48 MCV 102.8 fL (83.0-100.0) H 01/21/18 07:48 Neutrophils # 9.4 K/mcL (1.6-8.9) H 01/21/18 07:48 Monocytes # 1.6 K/mcL (0.0-1.3) H 01/21/18 07:48 PT 21.2 Seconds (9.4-12.1) H 01/18/18 12:35 ABG pCO2 84 mmHg (35-45) H* 01/18/18 05:44 ABG pO2 78 mmHg (85-104) L 01/18/18 05:44 ABG HCO3 52 mEq/L (21-27) H 01/18/18 05:44 ABG Total CO2 55 mEq/L (20-26) H 01/18/18 05:44 ABG O2 Saturation 94 % (95-98) L 01/18/18 05:44 ABG Base Excess 24 mEq/L (-2 to 3) H 01/18/18 05:44 Potassium 3.0 mEq/L (3.5-5.1) L 01/21/18 07:48 Chloride 80 mEq/L (98-107) L 01/21/18 07:48 Carbon Dioxide > 45 mEq/L (23-29) H* 01/21/18 07:48 Creatinine 0.51 mg/dL (0.60-1.20) L 01/21/18 07:48 POC Glucose 151 mg/dL (70-99) H 01/20/18 20:28 Hemoglobin A1c 5.8 % (-5.6) H 01/20/18 04:36 Calcium 7.5 mg/dL (8.6-10.3) L 01/21/18 07:48 B-Natriuretic Peptide 754 pg/mL (Less than 100) H 01/17/18 16:16 Serum Total Protein 5.4 g/dL (6.4-8.9) L 01/18/18 07:07 - Clinical Findings Intake & Output: Intake & Output 07/30/18 07/31/18 07/31/18 23:59 07:59 15:59 Intake Total 340 / 340 200 / 200 220 / 220 Output Total 100 / 100 900 / 900 80 / 80 Balance 240 / 240 -700 / -700 140 / 140 Weight 69.8 kg - VTE Documentation of Mechanical Device: Intermittent pneumatic compression device Consult Discharge Plan - Plan Referrals: Annamarie Michaels, HIGHWAY PAINTER [Partnered Physician] - (Office will call patient) NONE,PCP [Primary Care Provider] - (Patient is from [place], Will make own follow up when she gets home) <Michael Proctor - Last Filed: 01/21/18 16:53> Date of Encounter: 01/21/18 Objective PUL Vital signs: Last Vital Signs Temp 98.9 F 01/21/18 16:02 Pulse 123 01/21/18 16:06 Resp 18 01/21/18 16:02 BP 103/75 01/21/18 16:02 Pulse Ox 99 01/21/18 16:02 Results - Laboratory Findings CBC and BMP: 01/21/18 07:48 01/21/18 07:48 ABG ABG pH 7.40 pH Units (7.32-7.45) 01/18/18 05:44 ABG pCO2 84 mmHg (35-45) H* 01/18/18 05:44 ABG pO2 78 mmHg (85-104) L 01/18/18 05:44 ABG O2 Saturation 94 % (95-98) L 01/18/18 05:44 PT/INR, D-dimer PT 21.2 Seconds (9.4-12.1) H 01/18/18 12:35 Abnormal lab findings: Abnormal lab results WBC 12.2 K/mcL (4.3-11.1) H 01/21/18 07:48 RBC 2.87 M/mcL (3.82-4.97) L 01/21/18 07:48 Hgb 9.5 g/dL (11.5-15.4) L 01/21/18 07:48 Hct 29.5 % (35.3-44.9) L 01/21/18 07:48 MCV 102.8 fL (83.0-100.0) H 01/21/18 07:48 Neutrophils # 9.4 K/mcL (1.6-8.9) H 01/21/18 07:48 Monocytes # 1.6 K/mcL (0.0-1.3) H 01/21/18 07:48 PT 21.2 Seconds (9.4-12.1) H 01/18/18 12:35 ABG pCO2 84 mmHg (35-45) H* 01/18/18 05:44 ABG pO2 78 mmHg (85-104) L 01/18/18 05:44 ABG HCO3 52 mEq/L (21-27) H 01/18/18 05:44 ABG Total CO2 55 mEq/L (20-26) H 01/18/18 05:44 ABG O2 Saturation 94 % (95-98) L 01/18/18 05:44 ABG Base Excess 24 mEq/L (-2 to 3) H 01/18/18 05:44 Potassium 3.0 mEq/L (3.5-5.1) L 01/21/18 07:48 Chloride 80 mEq/L (98-107) L 01/21/18 07:48 Carbon Dioxide > 45 mEq/L (23-29) H* 01/21/18 07:48 Creatinine 0.51 mg/dL (0.60-1.20) L 01/21/18 07:48 POC Glucose 151 mg/dL (70-99) H 01/20/18 20:28 Hemoglobin A1c 5.8 % (-5.6) H 01/20/18 04:36 Calcium 7.5 mg/dL (8.6-10.3) L 01/21/18 07:48 B-Natriuretic Peptide 754 pg/mL (Less than 100) H 01/17/18 16:16 Serum Total Protein 5.4 g/dL (6.4-8.9) L 01/18/18 07:07 - Clinical Findings Intake & Output: Intake & Output 01/21/18 01/21/18 01/21/18 07:59 15:59 23:59 Intake Total 200 / 200 970 / 970 100 / 100 Output Total 900 / 900 1180 / 1180 Balance -700 / -700 -210 / -210 100 / 100 Weight 69.8 kg - Attending Attestation I examined this patient and my medical decision-making was reviewed with the Resident Physician. I agree with the documented findings, disposition and treatment plan as described except to the extent set forth below. Patient seen and examined. Labs, radiology, chart personally reviewed. 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
[2018-01-21] MEDS ORDERED: 0.9 % Sodium Chloride 250 ML ONE (11:14)
--- NOTE | 2018-01-21 12:08 | Internal Med Progress Note ---
Hospitalist Progress Note - Encounter Date of Encounter: 01/21/18 Time of Encounter: 12:06 - Subjective Interval History: Patient is still has fatigue and shortness of breath but better. .Review the lab with trending down white count . no fever. Patient is still is in A. fib with RVR heart rate is staying around 100-120s. Reviewed cardiology and pulmonology note. at bedside Patient denies fever or chills nausea vomiting headache dizziness chest pain abdominal pain urinary bowel complaint. Complaint of fatigue, generalized weakness. - Exam Vitals: Temp Pulse Resp BP Pulse Ox 98.4 F 107 17 91/40 98 01/21/18 11:36 01/21/18 12:00 01/21/18 12:00 01/21/18 12:00 01/21/18 12:00 Exam: General appearance: No acute distress, A&O X 3 Head exam: Atraumatic Eye exam: EOMI, PERRLA ENT exam: Moist oral mucosa Neck nontender, supple Respiratory exam: Few rales bilaterally Cardiovascular exam: A. fib with RVR, no systolic murmur Abdominal exam: Soft, nontender, nondistended, positive bowel sounds Extremities exam: No calf tenderness, no pedal edema Present: Skin-no rash, warm, dry, intact Neurological exam: Grossly CN II-XII intact, no focal deficits. No facial droop. Normal speech. - Assessment and Plan (1) HCAP (healthcare-associated pneumonia) Current Visit: Yes Status: Acute Assessment and Plan: Most likely multifocal pneumonia. CTA chest shows no PE but B/L multifocal airspace disease. Better leukocytosis .continue IV Zosyn now but will consider de-escalation soon, oxygen supplementation, nebulization with close monitoring. Blood culture with no growth head. Pulmonologists on board. A sterile awaiting good sample for a sputum culture-not collected yet. nasal MRSA screen negative. (2) Atrial fibrillation with RVR Current Visit: Yes Status: Acute Assessment and Plan: has h/o- a.fib, on Cardizem, Metoprolol and Eliquis at home. continues to have poorly controlled RVR; Cardiology on board; was on IV Amiodarone drip but today changed to amiodarone 400 mg by mouth twice a day. Digoxin loading dose was also given. Continue Metoprolol but not able to titrate up due to low blood pressure. Telemetry monitoring, initial Troponin negative. Continue Eliquis. (3) Pleural effusion Current Visit: Yes Status: Acute Assessment and Plan: right-sided pleural effusion status post thoracentesis more than 1 L, transudative fluid most likely due to CHF (4) COPD (chronic obstructive pulmonary disease) Current Visit: Yes Status: Chronic Assessment and Plan: Does not appear in acute exacerbation. has h/o- COPD on 4L/min O2 at home. continue PRN bronchodilator nebs, supplemental O2. (5) Acute on chronic respiratory failure with hypoxia and hypercapnia Current Visit: Yes Status: Acute Assessment and Plan: Multifactorial due to hydrostatic pulmonary edema, a.fib with RVR, Pneumonia and underlying COPD. improving (6) Acute decompensated heart failure Current Visit: Yes Status: Acute Assessment and Plan: Exacerbation most likely due to exacerbation of her known dysrhythmia . EF 50- 55%, indeterminate diastolic function due to A. fib, no segmental wall motion abnormalities. Continue Lasix 40 mg twice a day-at present negative balance. Continue strict I&O's, fluid restriction, daily weight. Cardiology on board (7) Leucocytosis Current Visit: Yes Status: Acute Assessment and Plan: No fever. Trending down white count. Blood culture with no growth yet. (8) Generalized weakness Current Visit: Yes Status: Acute Assessment and Plan: Due to above illnesses. Consult PT, OT. spring floor service worker consult for discharge plan. (9) DVT prophylaxis Current Visit: Yes Status: Acute Assessment and Plan: SCDs, on Eliquis - Time Spent with Patient Total time spent is greater than 50% in coordination of care (as documented) at patient's floor/unit and/or counseling patient: 25 - 35 minutes Internal Medicine: Result - Labs CBC & Chem 7: 01/21/18 07:48 01/21/18 07:48 Labs: Short CBC 01/21/18 Range/Units 07:48 WBC 12.2 H (4.3-11.1) K/mcL Hgb 9.5 L (11.5-15.4) g/dL Hct 29.5 L (35.3-44.9) % Plt Count 145 (140-400) K/mcL Neutrophils # 9.4 H (1.6-8.9) K/mcL BMP 01/21/18 07:48 Sodium 136 Potassium 3.0 L Chloride 80 L Carbon Dioxide > 45 H* BUN 8 Creatinine 0.51 L Glucose 101 Calcium 7.5 L - ABG Interpretation ABG results: ABG ABG pH 7.40 pH Units (7.32-7.45) 01/18/18 05:44 ABG pCO2 84 mmHg (35-45) H* 01/18/18 05:44 ABG pO2 78 mmHg (85-104) L 01/18/18 05:44 ABG O2 Saturation 94 % (95-98) L 01/18/18 05:44 PT/INR, D-dimer PT 21.2 Seconds (9.4-12.1) H 01/18/18 12:35 - VTE Documentation of Mechanical Device: Intermittent pneumatic compression device Consult Discharge Plan - Plan Referrals: Annamarie Michaels, ACETYLENE OPERATOR [Partnered Physician] - (Office will call patient) NONE,PCP [Primary Care Provider] - (Patient is from [place], Will make own follow up when she gets home) (4) COPD (chronic obstructive pulmonary disease) Qualifiers: COPD type: emphysema Emphysema type: unspecified Qualified Code(s): J43.9 - Emphysema, unspecified (7) Leucocytosis Qualifiers: Leukocytosis type: unspecified Qualified Code(s): D72.829 - Elevated white blood cell count, unspecified
[2018-01-21] MEDS: Lactobacillus 1 EACH CAP.SPRINK PO SCH ×2 (12:54→21:00)
[2018-01-21] MEDS: *HR* Digoxin 0.5 MG/2 ML AMPUL IVP SCH ×2 (15:55→21:02)
[2018-01-21] MEDS: *HR* Amiodarone 200 MG TABLET PO SCH (21:00)
[2018-01-22] MEDS: Piperacillin/Tazobactam 3.375 GM in 0.9 % Sodium Chloride Mini Bag 100 ML IVPB SCH ×3 (00:44→16:17)
[2018-01-22 04:08] LABS: Basophils % 0.1 %; Eosinophils # 0.1 K/mcL (0.0-0.6); Eosinophils % 1.3 %; Hematocrit 26.9 % (35.3-44.9); Hemoglobin 8.5 g/dL (11.5-15.4); Immature Granulocytes % 0.4 % (0-4); Lymphocytes # 0.6 K/mcL (0.6-4.6); Lymphocytes % 5.8 %; Mean Corpuscular HGB Conc 31.6 g/dL (31.6-35.5); Mean Corpuscular Hemoglobin 32.4 pg (28.0-33.3); Mean Corpuscular Volume 102.7 fL (83.0-100.0); Monocytes # 1.6 K/mcL (0.0-1.3); Monocytes % 14.7 %; Neutrophils # 8.6 K/mcL (1.6-8.9); Platelet Count 165 K/mcL (140-400); Red Blood Count 2.62 M/mcL (3.82-4.97); Red Cell Distribution Width 12.4 % (11.5-14.5); Segmented Neutrophils % 77.7 %
[2018-01-22 04:31] LABS: BUN/Creatinine Ratio 15 (6-26); Blood Urea Nitrogen 7 mg/dL (8-23); Calcium 7.8 mg/dL (8.6-10.3); Carbon Dioxide > 45 mEq/L (23-29); Chloride 82 mEq/L (98-107); Glucose 102 mg/dL (70-105); Osmolality,Calculated 278 (280-300); Potassium 3.1 mEq/L (3.5-5.1); Sodium 135 mEq/L (136-145); eGFR For Non-African Americans > 60 (> 60)
[2018-01-22] MEDS: Insulin LISPRO 300 UNITS/3 ML VIAL SQ SCH ×4 (07:46→21:40)
[2018-01-22] MEDS: *HR* Amiodarone 200 MG TABLET PO SCH ×2 (08:03→21:52)
[2018-01-22] MEDS: Apixaban 5 MG TABLET PO SCH ×2 (08:04→21:52)
[2018-01-22] MEDS: Lactobacillus 1 EACH CAP.SPRINK PO SCH ×2 (08:04→21:52)
[2018-01-22] MEDS: Budesonide/Formoterol 160/4.5 MDI IH SCH ×2 (08:05→20:36)
[2018-01-22] MEDS: Patient Taking Own Medication 1 EACH OP SCH ×2 (08:06→21:54)
[2018-01-22] MEDS: Furosemide 40 MG TABLET PO SCH (08:06)
[2018-01-22] MEDS: Dorzolamide OPTH 10 ML BOTTLE BOTH EYES SCH ×2 (08:06→21:53)
--- NOTE | 2018-01-22 11:56 | Cardiology Progress Note ---
Date of Encounter: 01/22/18 Time of Encounter: 10:00 Assessment and Plan (1) Diastolic heart failure Current Visit: Yes Status: Acute Per cardiology: -Suspect patient developed a COPD exacerbation initially which secondarily resulted in exacerbation of her known dysrhythmia and subsequently diastolic heart failure. -Her LVEF is 50-55%, indeterminate diastolic function (a.fib), no segmental wall motion abnormalities noted. -On lasix 40mg BID, currently net negative 6000ml. -Euvolemic on exam. -Now back on previous O2 at 2 LPM. States breathing is back to her baseline. -Strict i/os, fluid restriction, daily weights. -Patient was not previously on lasix, will decrease lasix to 40mg daily. -Will continue to monitor. Qualifiers: Heart failure chronicity: acute on chronic Qualified Code(s): I50.33 - Acute on chronic diastolic (congestive) heart failure (2) Atrial fibrillation with RVR Current Visit: Yes Status: Acute Per cardiology: -AFIB was difficult to rate control despite amiodarone drip and s/p thoracentesis with large fluid removal. -Average HR previous 12 hours noted to be 92, a.fib. HR now controlled. -On lopressor 25mg BID, unable to titrate further due to hypotension. On amiodarone 400mg BID. Was given IV digoxin load yesterday. -OF note, multifocal PNA noted per CT. -On eliquis for anticoagulation. -of note, K 3.1 today, replaced. -Discussed and reviewed with , will start oral digoxin 0.125mg daily. Continue amiodarone 400mg BID for one week. -Will continue to monitor. Discussion w patient/family: The assessment and plan as outlined above was discussed with the patient and/or family members who expressed understanding and agreement. All questions were answered. Thank you for involving us in the care of your patient. Please call with any questions. Discussed and reviewed with . Subjective Principal diagnosis: CHF, a.fib, PNA Interval history: Patient reports breathing is back to her baseline, currently on O2 at 2 LPM per nasal cannula. Denies palpitations or fluttering. Reports feels weak when sitting up. Objective Vital Signs, Last 4 Hours Pulse Resp Pulse Ox 01/22/18 08:11 73 01/22/18 08:07 16 97 Vital Signs Temperature 97.7 F 01/17/18 09:41 Pulse Rate 126 01/17/18 09:41 Respiratory Rate 26 01/17/18 09:41 Blood Pressure 113/64 01/17/18 09:41 O2 Sat by Pulse Oximetry 98 01/17/18 09:41 Temperature 97.5 F L 01/22/18 07:21 Pulse Rate 73 01/22/18 08:11 Respiratory Rate 16 01/22/18 08:07 Blood Pressure 94/41 01/22/18 07:21 O2 Sat by Pulse Oximetry 97 01/22/18 08:07 Oxygen Delivery Oxygen Delivery Nasal Cannula General: Conversant, No Apparent Distress HEENT: Atraumatic, Normocephaly, Mucus Membranes Moist Neck: No JVD, Normal carotid pulses Cardiac: Normal S1 and S2, No Murmur, Other (Irregularly irregular) Lungs: Other (Lung sounds diminished throughout) Neuro: Alert and responsive, No focal deficits noted Abdomen: Soft, Non-Tender Skin: No rashes noted on visualized skin Musculoskeletal: No Chest Wall Tenderness Extremities: No Clubbing, No Cyanosis, No Edema, Normal Pulses Results 01/22/18 03:24 01/22/18 03:24 Lab Results Active Medications Albuterol/Ipratropium (Duoneb) 3 ml IH [id number] PRN PRN Reason: Shortness Of Breath/Wheezing Stop: 07/21/18 12:43 Amiodarone HCl (Cordarone) [address] [facility] Stop: 07/23/18 21:01 Last Admin: 01/22/18 08:03 Dose: 400 mg Apixaban (Eliquis) [address] [facility] Stop: 07/21/18 21:01 Last Admin: 01/22/18 08:04 Dose: 5 mg Brimonidine Tartrate (Alphagan) [address] [facility] Stop: 07/19/18 22:46 Last Admin: 01/22/18 08:06 Dose: 1 drop Budesonide/Formoterol Fumarate (Symbicort) 2 puff IH BIDR JUNIOR PRN Reason: Protocol Stop: 07/22/18 10:01 Last Admin: 01/22/18 08:05 Dose: 2 puff Dextrose/Water (Dextrose 50% (Syg)) 25 ml IVP AD PRN PRN Reason: Hypoglycemia Stop: 07/19/18 17:52 Digoxin (Lanoxin) 0.[address] [facility] Stop: 07/24/18 12:01 Diphenhydramine HCl (Benadryl) 25 mg PO HS PRN PRN Reason: Insomnia Stop: 07/23/18 23:05 Dorzolamide HCl (Trusopt) [address] [facility] Stop: 07/19/18 22:46 Last Admin: 01/22/18 08:06 Dose: 1 drop Furosemide (Lasix) 40 mg PO BIDDIURETIC JUNIOR Stop: 07/21/18 08:31 Last Admin: 01/22/18 08:06 Dose: 40 mg Glucagon (Glucagen) 1 mg IM ONCE PRN PRN Reason: Hypoglycemia Stop: 07/19/18 17:52 Glucose (Gluctose) 15 gm PO ONCE PRN PRN Reason: Hypoglycemia Stop: 07/19/18 17:52 Glucose (Gluctose) 30 gm PO ONCE PRN PRN Reason: Hypoglycemia Stop: 07/19/18 17:52 Dextrose (Dextrose 5%) 1,000 mls @ 100 mls/hr IVC .Q10H PRN PRN Reason: HYPOGLYCEMIA Stop: 07/19/18 17:52 Piperacillin Sod/Tazobactam (Sod 3.375 gm/ Sodium Chloride) 100 mls @ 25 mls/ hr IVPB Q8HR [facility] Stop: 07/21/18 16:01 Last Admin: 01/22/18 08:06 Dose: 25 mls/hr Magnesium Sulfate 2 gm/ Sodium (Chloride) 104 mls @ 104 mls/hr IVPB ONCE ONE Stop: 01/22/18 12:31 Insulin Human Lispro (Humalog) [address] [facility] PRN Reason: Protocol Stop: 07/20/18 17:01 Last Admin: 01/22/18 07:46 Dose: Not Given Lactobacillus Acidophilus/Rhamnosus (Culturelle) [address] [facility] Stop: 07/23/18 12:16 Last Admin: 01/22/18 08:04 Dose: 1 each Metoprolol Tartrate (Lopressor) [address] [facility] Stop: 07/21/18 09:26 Last Admin: 01/22/18 08:04 Dose: 25 mg Montelukast Sodium (Singulair) [address] [facility] Stop: 07/22/18 09:01 Last Admin: 01/22/18 08:03 Dose: 10 mg Naloxone HCl (Narcan) 0.4 mg IVP Q2MIN PRN PRN Reason: SEE COMMENTS Stop: 07/19/18 16:13 Omeprazole (Prilosec) 20 mg PO DAILY@0630 [facility] PRN Reason: Protocol Stop: 07/24/18 07:41 Last Admin: 01/22/18 08:03 Dose: 20 mg Pharmacy Profile Note (Patient Taking Own Medication) [address] [facility] Stop: 07/20/18 09:01 Last Admin: 01/22/18 08:06 Dose: 1 each Pharmacy Profile Note (Patient Taking Own Medication) [address] [facility] Stop: 07/19/18 23:16 Last Admin: 01/21/18 21:02 Dose: 1 each Laboratory Tests 01/22/18 01/22/18 01/22/18 03:24 03:24 07:49 WBC 11.0 Hgb 8.5 L Potassium 3.1 L Creatinine 0.48 L Magnesium 1.4 L - Imaging and Cardiology Chest Xray: report reviewed Echo: report reviewed - EKG Interpretation EKG results cardiology: other (Telemetry reviewed with average HR previous 12 hours noted to be 103, a.fib. PVCs noted.) - VTE Documentation of Mechanical Device: Intermittent pneumatic compression device Consult Discharge Plan - Plan Referrals: Annamarie Michaels CNP [Partnered Physician] - (Office will call patient) NONE,PCP [Primary Care Provider] - (Patient is from [place], Will make own follow up when she gets home)
[2018-01-22] MEDS: *HR* Digoxin 0.125 MG TABLET PO SCH (12:56)
--- NOTE | 2018-01-22 13:04 | Pulmonology Progress Note ---
<Ronaldo Gotti - Last Filed: 01/22/18 12:52> Date of Encounter: 01/22/18 Time of Encounter: 12:52 Assessment and Plan (1) HCAP (healthcare-associated pneumonia) Current Visit: Yes Status: Acute White count decreased from 12.2 to 11.0 today. Patient still on Zosyn, cultures pending for de-escalation. Clinical condition improved, will continue to monitor white count, labs, and clinical condition. (2) Acute on chronic respiratory failure with hypoxia and hypercapnia Current Visit: Yes Status: Acute Patient saturating well on nasal cannula, clinical situation improved, cardiology recommending continued diuresis Clinical condition and vitals do not warrant repeat blood gas at this time, will continue to monitor Recommending continued supplemental oxygen titrated to saturation >90%, NIV at night (3) COPD (chronic obstructive pulmonary disease) Current Visit: Yes Status: Chronic Patient has history of COPD, she is not believed to be in exacerbation at this point Symbicort added for symptomatic relief and maintenance Continue bronchodilators, supplemental oxygen, NIV at night Qualifiers: COPD type: emphysema Emphysema type: unspecified Qualified Code(s): J43.9 - Emphysema, unspecified (4) Acute decompensated heart failure Current Visit: Yes Status: Acute Echocardiogram demonstrated LVEF 50-55%, indeterminate diastolic dysfunction Currently diuresing with Lasix 40mg PO daily, she is net negative 6 L, requiring less oxygen Plan to continue diuresis while monitoring I&O (5) Atrial fibrillation with RVR Current Visit: Yes Status: Acute Digoxin started yesterday, Patient is no longer tachycardic, without complaints of chest pain or palpitations She is also on amiodarone drip 0.5mg per hour, eliquis for anticoagulation (6) Pleural effusion Current Visit: Yes Status: Acute Thoracentesis 4 days ago removed 1.2L without complication Cytology indicated transudative effusion which was likely due to heart failure Patients heart failure is currently being managed and clinical condition is improving repeat thoracentesis will likely be unnecessary if improvement continues (7) Leucocytosis Current Visit: Yes Status: Acute WBC decreased from 12.2 to 11.0, with CT finding of multifocal infiltrates Patient currently on IV Zosyn, clinical condition improving, afebrile Qualifiers: Leukocytosis type: unspecified Qualified Code(s): D72.829 - Elevated white blood cell count, unspecified Subjective Principal diagnosis: CHF, a.fib, PNA Interval history: White count decreased from 12.2 to 11.0. She states she feels better today but complains of weakness, likely due to deconditioning. She denies chest pain or shortness of breath. is anxious about her being discharged before she is ready. Objective PUL Vital signs: Last Vital Signs Temp 98.3 F 01/22/18 11:53 Pulse 79 01/22/18 11:53 Resp 18 01/22/18 11:53 BP 97/43 01/22/18 11:53 Pulse Ox 96 01/22/18 11:53 Patient in no acute distress Alert and oriented x 3 Ventilating and saturating appropriately Heart in regular rate and irregular rhythm, nor murmur or gallop Lungs with limited expansion due to posture, minimal rales in lower left field, otherwise clear to auscultation Abdomen soft and non tender Skin warm and dry Lower extremities bilaterally minimally edematous, non pitting Results - Laboratory Findings CBC and BMP: 01/22/18 03:24 01/22/18 03:24 ABG ABG pH 7.40 pH Units (7.32-7.45) 01/18/18 05:44 ABG pCO2 84 mmHg (35-45) H* 01/18/18 05:44 ABG pO2 78 mmHg (85-104) L 01/18/18 05:44 ABG O2 Saturation 94 % (95-98) L 01/18/18 05:44 PT/INR, D-dimer PT 21.2 Seconds (9.4-12.1) H 01/18/18 12:35 Abnormal lab findings: Abnormal lab results RBC 2.62 M/mcL (3.82-4.97) L 01/22/18 03:24 Hgb 8.5 g/dL (11.5-15.4) L 01/22/18 03:24 Hct 26.9 % (35.3-44.9) L 01/22/18 03:24 MCV 102.7 fL (83.0-100.0) H 01/22/18 03:24 Monocytes # 1.6 K/mcL (0.0-1.3) H 01/22/18 03:24 PT 21.2 Seconds (9.4-12.1) H 01/18/18 12:35 ABG pCO2 84 mmHg (35-45) H* 01/18/18 05:44 ABG pO2 78 mmHg (85-104) L 01/18/18 05:44 ABG HCO3 52 mEq/L (21-27) H 01/18/18 05:44 ABG Total CO2 55 mEq/L (20-26) H 01/18/18 05:44 ABG O2 Saturation 94 % (95-98) L 01/18/18 05:44 ABG Base Excess 24 mEq/L (-2 to 3) H 01/18/18 05:44 Sodium 135 mEq/L (136-145) L 01/22/18 03:24 Potassium 3.1 mEq/L (3.5-5.1) L 01/22/18 03:24 Chloride 82 mEq/L (98-107) L 01/22/18 03:24 Carbon Dioxide > 45 mEq/L (23-29) H* 01/22/18 03:24 BUN 7 mg/dL (8-23) L 01/22/18 03:24 Creatinine 0.48 mg/dL (0.60-1.20) L 01/22/18 03:24 POC Glucose 131 mg/dL (70-99) H 01/21/18 20:23 Hemoglobin A1c 5.8 % (-5.6) H 01/20/18 04:36 Calculated Osmolality 278 (280-300) L 01/22/18 03:24 Calcium 7.8 mg/dL (8.6-10.3) L 01/22/18 03:24 Magnesium 1.4 mg/dL (1.6-2.6) L 01/22/18 07:49 B-Natriuretic Peptide 754 pg/mL (Less than 100) H 01/17/18 16:16 Serum Total Protein 5.4 g/dL (6.4-8.9) L 01/18/18 07:07 - Clinical Findings Intake & Output: Intake & Output 01/21/18 01/22/18 01/22/18 23:59 07:59 15:59 Intake Total 540 / 540 450 / 450 460 / 460 Output Total 1000 / 1000 Balance -460 / -460 450 / 450 460 / 460 Weight 69.8 kg - VTE Documentation of Mechanical Device: Intermittent pneumatic compression device Consult Discharge Plan - Plan Referrals: Annamarie Michaels, MANAGER CODE [Partnered Physician] - (Office will call patient) NONE,PCP [Primary Care Provider] - (Patient is from [place], Will make own follow up when she gets home) <Michael Proctor - Last Filed: 01/22/18 15:44> Date of Encounter: 01/22/18 Objective PUL Vital signs: Last Vital Signs Temp 98.3 F 01/22/18 11:53 Pulse 79 01/22/18 11:53 Resp 18 01/22/18 11:53 BP 97/43 01/22/18 11:53 Pulse Ox 96 01/22/18 11:53 Results - Laboratory Findings CBC and BMP: 01/22/18 03:24 01/22/18 14:07 ABG ABG pH 7.40 pH Units (7.32-7.45) 01/18/18 05:44 ABG pCO2 84 mmHg (35-45) H* 01/18/18 05:44 ABG pO2 78 mmHg (85-104) L 01/18/18 05:44 ABG O2 Saturation 94 % (95-98) L 01/18/18 05:44 PT/INR, D-dimer PT 21.2 Seconds (9.4-12.1) H 01/18/18 12:35 Abnormal lab findings: Abnormal lab results RBC 2.62 M/mcL (3.82-4.97) L 01/22/18 03:24 Hgb 8.5 g/dL (11.5-15.4) L 01/22/18 03:24 Hct 26.9 % (35.3-44.9) L 01/22/18 03:24 MCV 102.7 fL (83.0-100.0) H 01/22/18 03:24 Monocytes # 1.6 K/mcL (0.0-1.3) H 01/22/18 03:24 PT 21.2 Seconds (9.4-12.1) H 01/18/18 12:35 ABG pCO2 84 mmHg (35-45) H* 01/18/18 05:44 ABG pO2 78 mmHg (85-104) L 01/18/18 05:44 ABG HCO3 52 mEq/L (21-27) H 01/18/18 05:44 ABG Total CO2 55 mEq/L (20-26) H 01/18/18 05:44 ABG O2 Saturation 94 % (95-98) L 01/18/18 05:44 ABG Base Excess 24 mEq/L (-2 to 3) H 01/18/18 05:44 Sodium 135 mEq/L (136-145) L 01/22/18 03:24 Chloride 82 mEq/L (98-107) L 01/22/18 03:24 Carbon Dioxide > 45 mEq/L (23-29) H* 01/22/18 03:24 BUN 7 mg/dL (8-23) L 01/22/18 03:24 Creatinine 0.48 mg/dL (0.60-1.20) L 01/22/18 03:24 POC Glucose 131 mg/dL (70-99) H 01/21/18 20:23 Hemoglobin A1c 5.8 % (-5.6) H 01/20/18 04:36 Calculated Osmolality 278 (280-300) L 01/22/18 03:24 Calcium 7.8 mg/dL (8.6-10.3) L 01/22/18 03:24 Magnesium 1.4 mg/dL (1.6-2.6) L 01/22/18 07:49 B-Natriuretic Peptide 754 pg/mL (Less than 100) H 01/17/18 16:16 Serum Total Protein 5.4 g/dL (6.4-8.9) L 01/18/18 07:07 - Clinical Findings Intake & Output: Intake & Output 01/21/18 01/22/18 01/22/18 23:59 07:59 15:59 Intake Total 540 / 540 450 / 450 460 / 460 Output Total 1000 / 1000 Balance -460 / -460 450 / 450 460 / 460 Weight 69.8 kg - Attending Attestation I examined this patient and my medical decision-making was reviewed with the Resident Physician. I agree with the documented findings, disposition and treatment plan as described except to the extent set forth below. Patient seen and examined. Labs, radiology, chart personally reviewed. 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 There is no significant complaints from the patient and titrate FiO2 to keep SPO2 around 90% and a 6 minute walk is recommended before discharging patient for the oxygen. Please call for any questions. Encourage incentive spirometry.
--- NOTE | 2018-01-22 14:41 | Internal Med Progress Note ---
Hospitalist Progress Note - Encounter Date of Encounter: 01/22/18 Time of Encounter: 14:40 - Subjective Interval History: Feeling better in shortness of breath . Better her control but running low blood pressure after giving beta favian. Review the lab with electrolyte imbalance. PT OT on board and patient was able to get out of bed barely due to generalized weakness. at bedside Patient denies fever or chills nausea vomiting headache dizziness chest pain abdominal pain urinary bowel complaint. Complaint of fatigue, generalized weakness. - Exam Vitals: Temp Pulse Resp BP Pulse Ox 98.3 F 79 18 97/43 96 01/22/18 11:53 01/22/18 11:53 01/22/18 11:53 01/22/18 11:53 01/22/18 11:53 Exam: Patient in no acute distress Alert and oriented x 3 Ventilating and saturating appropriately Heart in regular rate and irregular rhythm, nor murmur or gallop Lungs with limited expansion due to posture, minimal rales in lower left field, otherwise clear to auscultation Abdomen soft and non tender Skin warm and dry Lower extremities bilaterally minimally edematous, non pitting Neuro-motor 5 x 5 in all 4 extremities, cranial nerves II through XII grossly intact - Assessment and Plan (1) Atrial fibrillation with RVR Current Visit: Yes Status: Acute Assessment and Plan: has h/o- a.fib, on Cardizem, Metoprolol and Eliquis at home. Better control heart rate but now blood pressure running low therefore decided to wean down beta favian and continue amiodarone. A started daily digoxin. Correction of electrolyte imbalance and monitor. Continue telemetry monitoring. Initial troponin negative. Continue Eliquis. (2) HCAP (healthcare-associated pneumonia) Current Visit: Yes Status: Acute Assessment and Plan: Most likely multifocal pneumonia. CTA chest shows no PE but B/L multifocal airspace disease. Better leukocytosis .continue IV Zosyn now but will consider de-escalation soon, oxygen supplementation, nebulization with close monitoring. Blood culture with no growth . Pulmonologists on board. nasal MRSA screen negative. (3) Pleural effusion Current Visit: Yes Status: Acute Assessment and Plan: right-sided pleural effusion status post thoracentesis more than 1 L, transudative fluid most likely due to CHF. Is stable (4) COPD (chronic obstructive pulmonary disease) Current Visit: Yes Status: Chronic Assessment and Plan: Does not appear in acute exacerbation. has h/o- COPD on 4L/min O2 at home. continue PRN bronchodilator nebs, supplemental O2. (5) Acute on chronic respiratory failure with hypoxia and hypercapnia Current Visit: Yes Status: Acute Assessment and Plan: Multifactorial due to hydrostatic pulmonary edema, a.fib with RVR, Pneumonia and underlying COPD. improving (6) Acute decompensated heart failure Current Visit: Yes Status: Acute Assessment and Plan: Exacerbation most likely due to exacerbation of her known dysrhythmia . EF 50- 55%, indeterminate diastolic function due to A. fib, no segmental wall motion abnormalities. Will decrease Lasix 40 mg by mouth daily instead of twice a day. Continue strict I&O's, fluid restriction, daily weight. Cardiology on board (7) Leucocytosis Current Visit: Yes Status: Acute Assessment and Plan: No fever. Trending down white count. Blood culture with no growth yet. (8) Generalized weakness Current Visit: Yes Status: Acute Assessment and Plan: Due to above illnesses. On board PT, OT. 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 (9) DVT prophylaxis Current Visit: Yes Status: Acute Assessment and Plan: SCDs, on Eliquis - Time Spent with Patient Total time spent is greater than 50% in coordination of care (as documented) at patient's floor/unit and/or counseling patient: 25 - 35 minutes Plan of Care Discussed with: patient Internal Medicine: Result - Labs CBC & Chem 7: 01/22/18 03:24 01/22/18 14:07 Labs: Short CBC 01/22/18 Range/Units 03:24 WBC 11.0 (4.3-11.1) K/mcL Hgb 8.5 L (11.5-15.4) g/dL Hct 26.9 L (35.3-44.9) % Plt Count 165 (140-400) K/mcL Neutrophils # 8.6 (1.6-8.9) K/mcL BMP 01/22/18 01/22/18 03:24 14:07 Sodium 135 L Potassium 3.1 L 4.1 D Chloride 82 L Carbon Dioxide > 45 H* BUN 7 L Creatinine 0.48 L Glucose 102 Calcium 7.8 L - ABG Interpretation ABG results: ABG ABG pH 7.40 pH Units (7.32-7.45) 01/18/18 05:44 ABG pCO2 84 mmHg (35-45) H* 01/18/18 05:44 ABG pO2 78 mmHg (85-104) L 01/18/18 05:44 ABG O2 Saturation 94 % (95-98) L 01/18/18 05:44 PT/INR, D-dimer PT 21.2 Seconds (9.4-12.1) H 01/18/18 12:35 - VTE Documentation of Mechanical Device: Intermittent pneumatic compression device Consult Discharge Plan - Plan Referrals: Annamarie Michaels, SCIENCES DEAN [Partnered Physician] - (Office will call patient) NONE,PCP [Primary Care Provider] - (Patient is from [place], Will make own follow up when she gets home) (4) COPD (chronic obstructive pulmonary disease) Qualifiers: COPD type: emphysema Emphysema type: unspecified Qualified Code(s): J43.9 - Emphysema, unspecified (7) Leucocytosis Qualifiers: Leukocytosis type: unspecified Qualified Code(s): D72.829 - Elevated white blood cell count, unspecified
[2018-01-23] MEDS: Piperacillin/Tazobactam 3.375 GM in 0.9 % Sodium Chloride Mini Bag 100 ML IVPB SCH ×4 (00:25→23:23)
[2018-01-23 05:34] LABS: Basophils % 0.1 %; Eosinophils # 0.1 K/mcL (0.0-0.6); Eosinophils % 1.2 %; Hematocrit 28.3 % (35.3-44.9); Hemoglobin 8.7 g/dL (11.5-15.4); Immature Granulocytes % 0.2 % (0-4); Lymphocytes # 0.8 K/mcL (0.6-4.6); Lymphocytes % 7.2 %; Mean Corpuscular HGB Conc 30.7 g/dL (31.6-35.5); Mean Platelet Volume 10.1 fL (9.4-12.4); Monocytes # 1.7 K/mcL (0.0-1.3); Monocytes % 16.2 %; Neutrophils # 7.9 K/mcL (1.6-8.9); Platelet Count 169 K/mcL (140-400); Red Blood Count 2.72 M/mcL (3.82-4.97); Red Cell Distribution Width 12.7 % (11.5-14.5); Segmented Neutrophils % 75.1 %
[2018-01-23 06:10] LABS: BUN/Creatinine Ratio 10 (6-26); Blood Urea Nitrogen 5 mg/dL (8-23); Calcium 8.3 mg/dL (8.6-10.3); Carbon Dioxide > 45 mEq/L (23-29); Chloride 88 mEq/L (98-107); Glucose 104 mg/dL (70-105); Magnesium 1.8 mg/dL (1.6-2.6); Osmolality,Calculated 286 (280-300); Potassium 3.4 mEq/L (3.5-5.1); Sodium 139 mEq/L (136-145); eGFR For Non-African Americans > 60 (> 60)
[2018-01-23] MEDS: Budesonide/Formoterol 160/4.5 MDI IH SCH ×2 (07:47→20:13)
[2018-01-23] MEDS: *HR* Amiodarone 200 MG TABLET PO SCH (07:52)
[2018-01-23] MEDS: Apixaban 5 MG TABLET PO SCH ×2 (07:52→20:45)
[2018-01-23] MEDS: *HR* Digoxin 0.125 MG TABLET PO SCH (07:52)
[2018-01-23] MEDS: Lactobacillus 1 EACH CAP.SPRINK PO SCH ×2 (07:53→20:45)
[2018-01-23] MEDS: Furosemide 40 MG TABLET PO SCH (07:53)
[2018-01-23] MEDS: Insulin LISPRO 300 UNITS/3 ML VIAL SQ SCH ×2 (07:55→12:33)
[2018-01-23] MEDS: Patient Taking Own Medication 1 EACH OP SCH ×2 (07:56→20:44)
[2018-01-23] MEDS: Dorzolamide OPTH 10 ML BOTTLE BOTH EYES SCH ×2 (07:57→20:45)
--- NOTE | 2018-01-23 11:07 | Cardiology Progress Note ---
Date of Encounter: 01/23/18 Time of Encounter: 10:00 Assessment and Plan (1) Diastolic heart failure Current Visit: Yes Status: Acute Per cardiology: -Suspect patient developed a COPD exacerbation initially which secondarily resulted in exacerbation of her known dysrhythmia and subsequently diastolic heart failure. -Her LVEF is 50-55%, indeterminate diastolic function (a.fib), no segmental wall motion abnormalities noted. -On lasix 40mg daily, currently net negative 5300ml. -Euvolemic on exam. -Now back on previous O2 at 2 LPM. States breathing is back to her baseline. -Strict i/os, fluid restriction, daily weights. -Will continue to monitor. Qualifiers: Heart failure chronicity: acute on chronic Qualified Code(s): I50.33 - Acute on chronic diastolic (congestive) heart failure (2) Atrial fibrillation with RVR Current Visit: Yes Status: Acute Per cardiology: -AFIB was difficult to rate control despite amiodarone drip and s/p thoracentesis with large fluid removal. -Average HR previous 12 hours noted to be 82, a.fib. HR now controlled. -On lopressor 12.5mg BID, unable to titrate further due to hypotension. On amiodarone 400mg BID. Was given IV digoxin load and was started on digoxin 0.125mg. -OF note, multifocal PNA noted per CT. -On eliquis for anticoagulation. -of note, states she thinks she might be in atrial fibrillation at all times. States she is asymptomatic while in a.fib. -Discussed and reviewed with Dr.John Kaur, who recommends discontinuation of digoxin. Recommends decreasing amiodarone to 100mg daily, will start tomorrow. -Will continue to monitor. Discussion w patient/family: The assessment and plan as outlined above was discussed with the patient and/or family members who expressed understanding and agreement. All questions were answered. Thank you for involving us in the care of your patient. Please call with any questions. Discussed and reviewed with Dr.John Kaur. Subjective Principal diagnosis: CHF, a.fib, PNA Interval history: Patient reports breathing is back to her baseline, currently on O2 at 2 LPM per nasal cannula. Denies palpitations or fluttering. Reports feels weak when sitting up. States thing are about the same today. Objective Vital Signs, Last 4 Hours Pulse Resp Pulse Ox 01/23/18 08:10 76 01/23/18 07:48 16 93 Vital Signs Temperature 97.7 F 01/17/18 09:41 Pulse Rate 126 01/17/18 09:41 Respiratory Rate 26 01/17/18 09:41 Blood Pressure 113/64 01/17/18 09:41 O2 Sat by Pulse Oximetry 98 01/17/18 09:41 Temperature 98.3 F 01/23/18 06:54 Pulse Rate 76 01/23/18 08:10 Respiratory Rate 16 01/23/18 07:48 Blood Pressure 102/53 01/23/18 06:54 O2 Sat by Pulse Oximetry 93 01/23/18 07:48 Oxygen Delivery Oxygen Delivery Nasal Cannula General: Conversant, No Apparent Distress HEENT: Atraumatic, Normocephaly, Mucus Membranes Moist Neck: No JVD, Normal carotid pulses Cardiac: Normal S1 and S2, No Murmur, Other (Irregularly irregular ) Lungs: Other (Lung sounds diminished throughout. ) Neuro: Alert and responsive, No focal deficits noted Abdomen: Soft, Non-Tender Skin: No rashes noted on visualized skin Musculoskeletal: No Chest Wall Tenderness Extremities: No Clubbing, No Cyanosis, No Edema, Normal Pulses Results 01/23/18 05:01 01/23/18 05:01 Lab Results Active Medications Albuterol/Ipratropium (Duoneb) 3 ml IH [id number] PRN PRN Reason: Shortness Of Breath/Wheezing Stop: 07/21/18 12:43 Amiodarone HCl (Cordarone) 400 mg PO BID [facility] Stop: 07/23/18 21:01 Last Admin: 01/23/18 07:52 Dose: 400 mg Apixaban (Eliquis) 5 mg PO BID [facility] Stop: 07/21/18 21:01 Last Admin: 01/23/18 07:52 Dose: 5 mg Brimonidine Tartrate (Alphagan) 1 drop BOTH EYES TID [facility] Stop: 07/19/18 22:46 Last Admin: 01/23/18 07:55 Dose: 1 drop Budesonide/Formoterol Fumarate (Symbicort) 2 puff IH BIDR [facility] PRN Reason: Protocol Stop: 07/22/18 10:01 Last Admin: 01/23/18 07:47 Dose: 2 puff Dextrose/Water (Dextrose 50% (Syg)) 25 ml IVP AD PRN PRN Reason: Hypoglycemia Stop: 07/19/18 17:52 Diphenhydramine HCl (Benadryl) 25 mg PO HS PRN PRN Reason: Insomnia Stop: 07/23/18 23:05 Last Admin: 01/22/18 21:52 Dose: 25 mg Dorzolamide HCl (Trusopt) 1 drop BOTH EYES BID [facility] Stop: 07/19/18 22:46 Last Admin: 01/23/18 07:57 Dose: 1 drop Furosemide (Lasix) 40 mg PO DAILY [facility] Stop: 07/25/18 09:01 Last Admin: 01/23/18 07:53 Dose: 40 mg Glucagon (Glucagen) 1 mg IM ONCE PRN PRN Reason: Hypoglycemia Stop: 07/19/18 17:52 Glucose (Gluctose) 15 gm PO ONCE PRN PRN Reason: Hypoglycemia Stop: 07/19/18 17:52 Glucose (Gluctose) 30 gm PO ONCE PRN PRN Reason: Hypoglycemia Stop: 07/19/18 17:52 Dextrose (Dextrose 5%) 1,000 mls @ 100 mls/hr IVC .Q10H PRN PRN Reason: HYPOGLYCEMIA Stop: 07/19/18 17:52 Piperacillin Sod/Tazobactam (Sod 3.375 gm/ Sodium Chloride) 100 mls @ 25 mls/ hr IVPB Q8HR [facility] Stop: 07/21/18 16:01 Last Admin: 01/23/18 07:54 Dose: 25 mls/hr Insulin Human Lispro (Humalog) 0 units SQ ACHS [facility] PRN Reason: Protocol Stop: 07/20/18 17:01 Last Admin: 01/23/18 07:55 Dose: Not Given Lactobacillus Acidophilus/Rhamnosus (Culturelle) 1 each PO BID [facility] Stop: 07/23/18 12:16 Last Admin: 01/23/18 07:53 Dose: 1 each Metoprolol Tartrate (Lopressor) 12.5 mg PO BID [facility] Stop: 07/24/18 12:55 Last Admin: 01/23/18 07:53 Dose: 12.5 mg Montelukast Sodium (Singulair) 10 mg PO DAILY [facility] Stop: 07/22/18 09:01 Last Admin: 01/23/18 07:53 Dose: 10 mg Naloxone HCl (Narcan) 0.4 mg IVP Q2MIN PRN PRN Reason: SEE COMMENTS Stop: 07/19/18 16:13 Omeprazole (Prilosec) 20 mg PO DAILY@0630 [facility] PRN Reason: Protocol Stop: 07/24/18 07:41 Last Admin: 01/23/18 06:02 Dose: 20 mg Pharmacy Profile Note (Patient Taking Own Medication) 1 each OP QAM [facility] Stop: 07/20/18 09:01 Last Admin: 01/23/18 07:56 Dose: 1 each Pharmacy Profile Note (Patient Taking Own Medication) 1 each OP HS [facility] Stop: 07/19/18 23:16 Last Admin: 01/22/18 21:54 Dose: 1 each Potassium Chloride (Potassium Chloride) 20 meq PO DAILY [facility] Stop: 07/25/18 09:01 Last Admin: 01/23/18 08:27 Dose: 20 meq Laboratory Tests 01/22/18 01/23/18 01/23/18 03:24 05:01 05:01 Hgb 8.5 L 8.7 L Potassium 3.4 L Creatinine 0.48 L Magnesium 1.8 - Imaging and Cardiology Chest Xray: report reviewed Echo: report reviewed - EKG Interpretation EKG results cardiology: other (Telemetry reviewed with average HR previous 12 hours noted to be 84, a.fib.) - VTE Documentation of Mechanical Device: Intermittent pneumatic compression device Consult Discharge Plan - Plan Referrals: Annamarie Michaels, BUSINESS PROCESS MANAGER [Partnered Physician] - (Office will call patient) NONE,PCP [Primary Care Provider] - (Patient is from [place], Will make own follow up when she gets home)
--- NOTE | 2018-01-23 13:19 | Internal Med Progress Note ---
Hospitalist Progress Note - Encounter Date of Encounter: 01/23/18 Time of Encounter: 13:17 - Subjective Interval History: better in shortness of breath . HR dropped in 40s. Blood pressure better. Fire Assistant made aware. reviewed the lab with electrolyte imbalance. PT OT on board and patient was able to get out of bed.. at bedside Patient denies fever or chills nausea vomiting headache dizziness chest pain abdominal pain urinary bowel complaint. Complaint of fatigue, generalized weakness. - Exam Vitals: Temp Pulse Resp BP Pulse Ox 98.4 F 61 16 97/47 96 01/23/18 11:15 01/23/18 11:15 01/23/18 11:15 01/23/18 11:15 01/23/18 11:15 Exam: Patient in no acute distress, at bedside Alert and oriented x 3 Ventilating and saturating appropriately Heart in regular rate and irregular rhythm, nor murmur or gallop Lungs with limited expansion due to posture, minimal rales in lower left field, otherwise clear to auscultation Abdomen soft and non tender Skin warm and dry Lower extremities bilaterally minimally edematous, non pitting Neuro-motor 5 x 5 in all 4 extremities, cranial nerves II through XII grossly intact - Assessment and Plan (1) Atrial fibrillation with RVR Current Visit: Yes Status: Acute Assessment and Plan: has h/o- a.fib, on Cardizem, Metoprolol and Eliquis at home. Difficult to control heart rate despite amiodarone drip and a status post thoracentesis with large fluid removal. Beta favian 12.5 mg twice a day unable to titrate due to low blood pressure. Amiodarone 400 twice a day was restarted and IV digoxin load was given. Cardiology stop digoxin and recommending to address further amiodarone dose. Discharge plan as per cardiology recommendation. Continue Eliquis (2) HCAP (healthcare-associated pneumonia) Current Visit: Yes Status: Acute Assessment and Plan: Most likely multifocal pneumonia. CTA chest shows no PE but B/L multifocal airspace disease. Normal white count.continue IV Zosyn now but will consider de -escalation soon as per pulmonary advice, oxygen supplementation, nebulization with close monitoring. Blood culture with no growth . Pulmonologists on board. nasal MRSA screen negative. (3) Pleural effusion Current Visit: Yes Status: Acute Assessment and Plan: right-sided pleural effusion status post thoracentesis more than 1 L, transudative fluid most likely due to CHF. Is stable (4) COPD (chronic obstructive pulmonary disease) Current Visit: Yes Status: Chronic Assessment and Plan: Does not appear in acute exacerbation. has h/o- COPD on 4L/min O2 at home. continue PRN bronchodilator nebs, supplemental O2. (5) Acute on chronic respiratory failure with hypoxia and hypercapnia Current Visit: Yes Status: Acute Assessment and Plan: Multifactorial due to hydrostatic pulmonary edema, a.fib with RVR, Pneumonia and underlying COPD. improving (6) Acute decompensated heart failure Current Visit: Yes Status: Acute Assessment and Plan: Exacerbation most likely due to exacerbation of her known dysrhythmia . EF 50- 55%, indeterminate diastolic function due to A. fib, no segmental wall motion abnormalities. Continue Lasix 40 mg by mouth daily instead of twice a day. Continue strict I&O's, fluid restriction, daily weight. Cardiology on board (7) Leucocytosis Current Visit: Yes Status: Acute Assessment and Plan: No fever. Trending down white count. Blood culture with no growth yet. (8) Generalized weakness Current Visit: Yes Status: Acute Assessment and Plan: Due to above illnesses. On board PT, OT. cleaning and maintenance worker consult for discharge plan. (9) DVT prophylaxis Current Visit: Yes Status: Acute Assessment and Plan: SCDs, on Eliquis - Time Spent with Patient Total time spent is greater than 50% in coordination of care (as documented) at patient's floor/unit and/or counseling patient: 25 - 35 minutes Internal Medicine: Result - Labs CBC & Chem 7: 01/23/18 05:01 01/23/18 05:01 Labs: Short CBC 01/23/18 Range/Units 05:01 WBC 10.5 (4.3-11.1) K/mcL Hgb 8.7 L (11.5-15.4) g/dL Hct 28.3 L (35.3-44.9) % Plt Count 169 (140-400) K/mcL Neutrophils # 7.9 (1.6-8.9) K/mcL BMP 01/22/18 01/23/18 14:07 05:01 Sodium 139 Potassium 4.1 D 3.4 L Chloride 88 L Carbon Dioxide > 45 H* BUN 5 L Creatinine 0.48 L Glucose 104 Calcium 8.3 L - ABG Interpretation ABG results: ABG ABG pH 7.40 pH Units (7.32-7.45) 01/18/18 05:44 ABG pCO2 84 mmHg (35-45) H* 01/18/18 05:44 ABG pO2 78 mmHg (85-104) L 01/18/18 05:44 ABG O2 Saturation 94 % (95-98) L 01/18/18 05:44 PT/INR, D-dimer PT 21.2 Seconds (9.4-12.1) H 01/18/18 12:35 - VTE Documentation of Mechanical Device: Intermittent pneumatic compression device Consult Discharge Plan - Plan Referrals: Annamarie Michaels, OPERATIONS SUPERVISOR 2ND SHIFT [Partnered Physician] - (Office will call patient) NONE,PCP [Primary Care Provider] - (Patient is from [place], Will make own follow up when she gets home) (4) COPD (chronic obstructive pulmonary disease) Qualifiers: COPD type: emphysema Emphysema type: unspecified Qualified Code(s): J43.9 - Emphysema, unspecified (7) Leucocytosis Qualifiers: Leukocytosis type: unspecified Qualified Code(s): D72.829 - Elevated white blood cell count, unspecified
[2018-01-24] MEDS: Lactobacillus 1 EACH CAP.SPRINK PO SCH ×2 (09:00→20:28)
[2018-01-24] MEDS: Apixaban 5 MG TABLET PO SCH ×2 (09:00→20:28)
[2018-01-24] MEDS: Furosemide 40 MG TABLET PO SCH (09:00)
[2018-01-24] MEDS: Piperacillin/Tazobactam 3.375 GM in 0.9 % Sodium Chloride Mini Bag 100 ML IVPB SCH (09:02)
[2018-01-24] MEDS: Dorzolamide OPTH 10 ML BOTTLE BOTH EYES SCH ×2 (09:04→20:26)
[2018-01-24] MEDS: Patient Taking Own Medication 1 EACH OP SCH ×2 (09:05→20:27)
[2018-01-24 09:13] LABS: Basophils % 0.2 %; Eosinophils # 0.1 K/mcL (0.0-0.6); Eosinophils % 1.3 %; Hematocrit 30.2 % (35.3-44.9); Hemoglobin 9.3 g/dL (11.5-15.4); Immature Granulocytes % 0.5 % (0-4); Lymphocytes # 0.8 K/mcL (0.6-4.6); Lymphocytes % 7.4 %; Mean Corpuscular HGB Conc 30.8 g/dL (31.6-35.5); Mean Corpuscular Hemoglobin 32.2 pg (28.0-33.3); Mean Corpuscular Volume 104.5 fL (83.0-100.0); Mean Platelet Volume 9.7 fL (9.4-12.4); Monocytes # 1.5 K/mcL (0.0-1.3); Monocytes % 14.5 %; Neutrophils # 7.9 K/mcL (1.6-8.9); Platelet Count 204 K/mcL (140-400); Red Blood Count 2.89 M/mcL (3.82-4.97); Red Cell Distribution Width 12.7 % (11.5-14.5); Segmented Neutrophils % 76.1 %
[2018-01-24 09:37] LABS: BUN/Creatinine Ratio 13 (6-26); Blood Urea Nitrogen 6 mg/dL (8-23); Calcium 8.5 mg/dL (8.6-10.3); Carbon Dioxide 42 mEq/L (23-29); Chloride 90 mEq/L (98-107); Glucose 141 mg/dL (70-105); Magnesium 1.8 mg/dL (1.6-2.6); Osmolality,Calculated 284 (280-300); Potassium 3.9 mEq/L (3.5-5.1); Sodium 137 mEq/L (136-145); eGFR For Non-African Americans > 60 (> 60)
--- NOTE | 2018-01-24 10:22 | Cardiology Progress Note ---
Date of Encounter: 01/24/18 Time of Encounter: 09:00 Assessment and Plan (1) Diastolic heart failure Current Visit: Yes Status: Acute Per cardiology: -Suspect patient developed a COPD exacerbation initially which secondarily resulted in exacerbation of her known dysrhythmia and subsequently diastolic heart failure. -Her LVEF is 50-55%, indeterminate diastolic function (a.fib), no segmental wall motion abnormalities noted. -On lasix 40mg daily, currently net negative 5300ml. -Euvolemic on exam. -Now back on previous O2 at 2 LPM. States breathing is back to her baseline. -Strict i/os, fluid restriction, daily weights. -CHF education reviewed with patient and family at length. -Cardiology will sign off and will follow in outpatient setting, Follow up set. OF note, patient resides in [place]. Patient and family request OP visit prior to traveling back to [place]. Qualifiers: Heart failure chronicity: acute on chronic Qualified Code(s): I50.33 - Acute on chronic diastolic (congestive) heart failure (2) Atrial fibrillation with RVR Current Visit: Yes Status: Acute Per cardiology: -AFIB was difficult to rate control despite amiodarone drip and s/p thoracentesis with large fluid removal. -Average HR previous 12 hours noted to be 88, a.fib. HR now controlled. -On lopressor 12.5mg BID, and amiodarone 100mg daily. -OF note, multifocal PNA noted per CT. -On eliquis for anticoagulation. -of note, states she thinks she might be in atrial fibrillation at all times. States she is asymptomatic while in a.fib. -Discussed and reviewed with Dr.John Kaur, continue lopressor 12.5mg BID and amiodarone 100mg daily. -Cardiology will sign off and will follow in outpatient setting. Follow up set. Discussion w patient/family: The assessment and plan as outlined above was discussed with the patient and/or family members who expressed understanding and agreement. All questions were answered. Thank you for involving us in the care of your patient. Please call with any questions. Discussed and reviewed with Dr.John Kaur. Subjective Principal diagnosis: CHF, a.fib, PNA Interval history: Patient reports breathing is back to her baseline, currently on O2 at 2 LPM per nasal cannula. Denies palpitations or fluttering. Objective Vital Signs, Last 4 Hours Temp Pulse Resp BP Pulse Ox 01/24/18 09:14 91 01/24/18 09:13 99 01/24/18 06:28 98.3 F 85 20 119/48 99 General: Conversant, No Apparent Distress HEENT: Atraumatic, Normocephaly, Mucus Membranes Moist Neck: No JVD, Normal carotid pulses Cardiac: Normal S1 and S2, No Murmur, Other (Irregularly irregular ) Lungs: Other (Lung sounds diminished throughout) Neuro: Alert and responsive, No focal deficits noted Abdomen: Soft, Non-Tender Skin: No rashes noted on visualized skin Musculoskeletal: No Chest Wall Tenderness Extremities: No Clubbing, No Cyanosis, No Edema, Normal Pulses Results 01/24/18 08:46 01/24/18 08:46 Lab Results Active Medications Albuterol/Ipratropium (Duoneb) 3 ml IH [id number] PRN PRN Reason: Shortness Of Breath/Wheezing Stop: 07/21/18 12:43 Amiodarone HCl (Cordarone) 100 mg PO DAILY [facility] Stop: 07/26/18 10:31 Apixaban (Eliquis) 5 mg PO BID [facility] Stop: 07/21/18 21:01 Last Admin: 01/24/18 09:00 Dose: 5 mg Brimonidine Tartrate (Alphagan) 1 drop BOTH EYES TID [facility] Stop: 07/19/18 22:46 Last Admin: 01/24/18 09:04 Dose: 1 drop Budesonide/Formoterol Fumarate (Symbicort) 2 puff IH BIDR JUNIOR PRN Reason: Protocol Stop: 07/22/18 10:01 Last Admin: 01/24/18 11:14 Dose: 2 puff Calcium Carbonate (Tums) 1,000 mg PO Q4HR PRN; Protocol PRN Reason: Heartburn Stop: 07/25/18 12:41 Last Admin: 01/24/18 08:59 Dose: 1,000 mg Diphenhydramine HCl (Benadryl) 25 mg PO HS PRN PRN Reason: Insomnia Stop: 07/23/18 23:05 Last Admin: 01/22/18 21:52 Dose: 25 mg Dorzolamide HCl (Trusopt) 1 drop BOTH EYES BID [facility] Stop: 07/19/18 22:46 Last Admin: 01/24/18 09:04 Dose: 1 drop Furosemide (Lasix) 40 mg PO DAILY [facility] Stop: 07/25/18 09:01 Last Admin: 01/24/18 09:00 Dose: 40 mg Glucagon (Glucagen) 1 mg IM ONCE PRN PRN Reason: Hypoglycemia Stop: 07/19/18 17:52 Piperacillin Sod/Tazobactam (Sod 3.375 gm/ Sodium Chloride) 100 mls @ 25 mls/ hr IVPB Q8HR [facility] Stop: 07/21/18 16:01 Last Admin: 01/24/18 09:02 Dose: 25 mls/hr Lactobacillus Acidophilus/Rhamnosus (Culturelle) 1 each PO BID [facility] Stop: 07/23/18 12:16 Last Admin: 01/24/18 09:00 Dose: 1 each Metoprolol Tartrate (Lopressor) 12.5 mg PO BID [facility] Stop: 07/24/18 12:55 Last Admin: 01/24/18 09:00 Dose: 12.5 mg Montelukast Sodium (Singulair) 10 mg PO DAILY [facility] Stop: 07/22/18 09:01 Last Admin: 01/24/18 09:00 Dose: 10 mg Naloxone HCl (Narcan) 0.4 mg IVP Q2MIN PRN PRN Reason: SEE COMMENTS Stop: 07/19/18 16:13 Omeprazole (Prilosec) 20 mg PO DAILY@0630 [facility] PRN Reason: Protocol Stop: 07/24/18 07:41 Last Admin: 01/24/18 05:34 Dose: 20 mg Pharmacy Profile Note (Patient Taking Own Medication) 1 each OP QAM JUNIOR Stop: 07/20/18 09:01 Last Admin: 01/24/18 09:05 Dose: 1 each Pharmacy Profile Note (Patient Taking Own Medication) 1 each OP HS [facility] Stop: 07/19/18 23:16 Last Admin: 01/23/18 20:44 Dose: 1 each Potassium Chloride (Potassium Chloride) 20 meq PO DAILY [facility] Stop: 07/25/18 09:01 Last Admin: 01/24/18 09:00 Dose: 20 meq Laboratory Tests 01/24/18 01/24/18 08:46 08:46 Hgb 9.3 L Potassium 3.9 Creatinine 0.48 L Magnesium 1.8 - Imaging and Cardiology Chest Xray: report reviewed Echo: report reviewed - EKG Interpretation EKG results cardiology: other (Telemetry reviewed with average HR previous 12 hours noted to be 88, a.fib. PVCs noted.) - VTE Documentation of Mechanical Device: Intermittent pneumatic compression device Consult Discharge Plan - Plan Referrals: Annamarie Michaels, JATIN [Partnered Physician] - (Office will call patient) NONE,PCP [Primary Care Provider] - (Patient is from [place], Will make own follow up when she gets home)
[2018-01-24] MEDS: Budesonide/Formoterol 160/4.5 MDI IH SCH ×2 (11:14→20:07)
[2018-01-24] MEDS: *HR* Amiodarone 200 MG TABLET PO SCH (11:25)
[2018-01-24] MEDS: levoFLOXacin 750 MG TABLET PO SCH (13:07)
--- NOTE | 2018-01-24 16:43 | Internal Med Progress Note ---
Hospitalist Progress Note - Encounter Date of Encounter: 01/24/18 Time of Encounter: 16:40 - Subjective Interval History: Patient is still had low blood pressure yesterday and had to hold the medication including Lasix and beta favian. Heart rate better controlled. better in shortness of breath . reviewed the lab . PT OT on board and patient was able to get out of bed.. at bedside Patient denies fever or chills nausea vomiting headache dizziness chest pain abdominal pain urinary bowel complaint. Complaint of fatigue, generalized weakness. - Exam Vitals: Temp Pulse Resp BP Pulse Ox 98.3 F 86 18 92/48 96 01/24/18 16:33 01/24/18 16:33 01/24/18 16:33 01/24/18 16:33 01/24/18 16:33 Exam: Patient in no acute distress, at bedside Ventilating and saturating appropriately Heart in regular rate and irregular rhythm, nor murmur or gallop Lungs with limited expansion due to posture, minimal rales in lower left field, otherwise clear to auscultation Abdomen soft and non tender Skin warm and dry Lower extremities bilaterally minimally edematous, non pitting Neuro-motor 5 x 5 in all 4 extremities, cranial nerves II through XII grossly intact, alert awake oriented - Assessment and Plan (1) Atrial fibrillation with RVR Current Visit: Yes Status: Acute Assessment and Plan: has h/o- a.fib, on Cardizem, Metoprolol and Eliquis at home. Difficult to control heart rate despite amiodarone drip and a status post thoracentesis with large fluid removal. Beta favian 12.5 mg twice a day unable to titrate due to low blood pressure. Amiodarone 400 twice a day was restarted and IV digoxin load was given. Has been is struggling to control her heart rate while keeping blood pressure optimized and made frequent adjustment in medication. Yesterday again had low blood pressure and had to hold beta favian and Lasix. Informed aircraft communicator. Plan to discharge patient tomorrow if continue to be stable. Note-reviewed the aircraft communicator note and he recommended amiodarone 100 mg daily with continuation of metoprolol 12.5 mg by mouth twice a day (2) HCAP (healthcare-associated pneumonia) Current Visit: Yes Status: Acute Assessment and Plan: Most likely multifocal pneumonia. CTA chest shows no PE but B/L multifocal airspace disease. Normal white count.stopped IV Zosyn and is started on Levaquin. Continue oxygen supplementation, nebulization with close monitoring. Blood culture with no growth . Pulmonologists on board. nasal MRSA screen negative. (3) Pleural effusion Current Visit: Yes Status: Acute Assessment and Plan: right-sided pleural effusion status post thoracentesis more than 1 L, transudative fluid most likely due to CHF. Is stable (4) COPD (chronic obstructive pulmonary disease) Current Visit: Yes Status: Chronic Assessment and Plan: Does not appear in acute exacerbation. has h/o- COPD on 4L/min O2 at home but now 2 L oxygen by nasal cannula. continue PRN bronchodilator nebs, supplemental O2. (5) Acute on chronic respiratory failure with hypoxia and hypercapnia Current Visit: Yes Status: Acute Assessment and Plan: Multifactorial due to hydrostatic pulmonary edema, a.fib with RVR, Pneumonia and underlying COPD. improving (6) Acute decompensated heart failure Current Visit: Yes Status: Acute Assessment and Plan: Exacerbation most likely due to exacerbation of her known dysrhythmia . EF 50- 55%, indeterminate diastolic function due to A. fib, no segmental wall motion abnormalities. Continue Lasix 40 mg by mouth daily instead of twice a day. Continue strict I&O's, fluid restriction, daily weight. Cardiology on board (7) Leucocytosis Current Visit: Yes Status: Acute Assessment and Plan: No fever. Normal white count. Blood culture with no growth yet. (8) Generalized weakness Current Visit: Yes Status: Acute Assessment and Plan: Due to above illnesses. On board PT, OT. utility worker woolen mill consult for discharge plan. (9) DVT prophylaxis Current Visit: Yes Status: Acute Assessment and Plan: SCDs, on Eliquis - Time Spent with Patient Total time spent is greater than 50% in coordination of care (as documented) at patient's floor/unit and/or counseling patient: Internal Medicine: Result - Labs CBC & Chem 7: 01/24/18 08:46 01/24/18 08:46 Labs: Short CBC 01/24/18 Range/Units 08:46 WBC 10.4 (4.3-11.1) K/mcL Hgb 9.3 L (11.5-15.4) g/dL Hct 30.2 L (35.3-44.9) % Plt Count 204 (140-400) K/mcL Neutrophils # 7.9 (1.6-8.9) K/mcL BMP 01/24/18 08:46 Sodium 137 Potassium 3.9 Chloride 90 L Carbon Dioxide 42 H* BUN 6 L Creatinine 0.48 L Glucose 141 H Calcium 8.5 L - ABG Interpretation ABG results: ABG ABG pH 7.40 pH Units (7.32-7.45) 01/18/18 05:44 ABG pCO2 84 mmHg (35-45) H* 01/18/18 05:44 ABG pO2 78 mmHg (85-104) L 01/18/18 05:44 ABG O2 Saturation 94 % (95-98) L 01/18/18 05:44 PT/INR, D-dimer PT 21.2 Seconds (9.4-12.1) H 01/18/18 12:35 - VTE Documentation of Mechanical Device: Intermittent pneumatic compression device Consult Discharge Plan - Plan Referrals: Jose Rodriges MD [Partnered Physician] - 01/27/18 10:30 am NONE,PCP [Primary Care Provider] - (Patient is from [place], Will make own follow up when she gets home) (4) COPD (chronic obstructive pulmonary disease) Qualifiers: COPD type: emphysema Emphysema type: unspecified Qualified Code(s): J43.9 - Emphysema, unspecified (7) Leucocytosis Qualifiers: Leukocytosis type: unspecified Qualified Code(s): D72.829 - Elevated white blood cell count, unspecified
[2018-01-25] MEDS: Budesonide/Formoterol 160/4.5 MDI IH SCH (08:09)
[2018-01-25] MEDS: Lactobacillus 1 EACH CAP.SPRINK PO SCH (08:51)
[2018-01-25] MEDS: Furosemide 40 MG TABLET PO SCH (08:52)
[2018-01-25] MEDS: levoFLOXacin 750 MG TABLET PO SCH (08:53)
[2018-01-25] MEDS: *HR* Amiodarone 200 MG TABLET PO SCH (08:53)
[2018-01-25] MEDS: Apixaban 5 MG TABLET PO SCH (08:54)
[2018-01-25] MEDS: Patient Taking Own Medication 1 EACH OP SCH (08:55)
[2018-01-25] MEDS: Dorzolamide OPTH 10 ML BOTTLE BOTH EYES SCH (08:55)
[2018-01-25 11:23] VITALS: BP 98/42
--- NOTE | 2018-01-25 13:09 | Discharge Summary ---
- NOTES TO OUTPATIENT PROVIDER Notes to Outpatient Provider: Keep appointment with cardiology on Saturday-as a scheduled. Keep appointment with pulmonologists in 3-5 days. Follow with PCP within one week Orders not resulted at time of discharge: Pending orders 01/19/18 10:25 Culture,Sputum with Gram Stain [RM] Stat Date of Encounter: 01/25/18 Time of Encounter: 13:06 - Discharge Diagnosis (1) Atrial fibrillation with RVR Priority: Primary Status: Acute Assessment and Plan: Had been poorly controlled and we had to make several adjustments in medication. Finally patient heart rate and blood pressure has been a stable on amiodarone 100 mg by mouth daily and beta favian 12.5 mg twice daily therefore will discharge patient on this medical regime along with continuation of Eliquis. Patient has appointment with prescriptionist this Saturday. Assembler Crimper' s okay to discharge patient home with follow-up appointment in office has h/o- a.fib, on Cardizem, Metoprolol and Eliquis at home. (2) HCAP (healthcare-associated pneumonia) Priority: Primary Status: Acute Assessment and Plan: Most likely multifocal pneumonia. CTA chest shows no PE but B/L multifocal airspace disease. Normal white count.stopped IV Zosyn changed to Levaquin. Patient has completed more than 7 days course of antibiotics. Discussed the discharge plan with pulmonologists who is okay with 7 days course of antibiotic. Patient has been off and on on antibiotics since december and has concern to develop C. difficile with prolonged antibiotic exposure. Patient has been doing clinically good in fact requiring less oxygen compared to home and white count has been normal for last 3 days. Continue oxygen supplementation, nebulization with close monitoring. Blood culture with no growth . nasal MRSA screen negative. (3) Pleural effusion Priority: Primary Status: Acute Assessment and Plan: right-sided pleural effusion status post thoracentesis more than 1 L, transudative fluid most likely due to CHF. Is stable (4) COPD (chronic obstructive pulmonary disease) Priority: Secondary Status: Chronic Assessment and Plan: Does not appear in acute exacerbation. has h/o- COPD on 4L/min O2 at home but now 2 L oxygen by nasal cannula. continue PRN bronchodilator nebs, supplemental O2. Qualifiers: COPD type: emphysema Emphysema type: unspecified Qualified Code(s): J43.9 - Emphysema, unspecified (5) Acute on chronic respiratory failure with hypoxia and hypercapnia Priority: Primary Status: Acute Assessment and Plan: Multifactorial due to hydrostatic pulmonary edema, a.fib with RVR, Pneumonia and underlying COPD. improving (6) Acute decompensated heart failure Priority: Primary Status: Acute Assessment and Plan: Exacerbation most likely due to exacerbation of her known dysrhythmia . EF 50- 55%, indeterminate diastolic function due to A. fib, no segmental wall motion abnormalities. Will discharge patient on Lasix 40 mg daily (7) Leucocytosis Priority: Primary Status: Acute Assessment and Plan: No fever. Normal white count. Blood culture with no growth yet. Qualifiers: Leukocytosis type: unspecified Qualified Code(s): D72.829 - Elevated white blood cell count, unspecified (8) Generalized weakness Priority: Primary Status: Acute Assessment and Plan: Due to above illnesses. On board PT, OT and okay to discharge home Hospital course: Ms. Hayward is a 72 year old female patient got admitted for shortness of breath with multiple recent such as acute on chronic CHF, pleural effusion, pulmonary edema, pneumonia that made her A. fib poorly controlled. Assembler Crimper's and pulmonologists consulted. Please see details in diagnosis section of discharge summary. At the time of discharge patient clinically and hemodynamically stable , tolerating oral diet and ambulating well without dizziness. Her blood pressure is running in higher 90s and high 40s with heart rate in 80s to 90s without any symptoms. Discussed discharge plan with prescriptionist and quality assurance group leader who is okay to discharge patient with follow-up outpatient. Also discussed discharge plan with patient and her and they feel comfortable going home. Discharge discussed with: patient, family, nurse - Time Spent with Patient Total time spent providing and/or coordinating discharge services: Greater than 30 minutes (Communication with patient, family, nursing staff and consultants) - Discharge Medications Home Medications: Albuterol Neb [Proventil Neb] 3 ml IH TID 01/17/18 [History] Albuterol Sulfate [Proair Hfa] 1 puff IH DAILY 01/17/18 [History] Apixaban [Eliquis] 5 mg PO BID 01/17/18 [History] Betaxolol HCl [Betoptic S] 1 drop OP QAM 01/17/18 [History] Bimatoprost [Lumigan] 1 drop OP HS 01/17/18 [History] Brimonidine Tartrate [Alphagan P] 1 drop OP TID 01/17/18 [History] Budesonide/Formoterol 160/4.5 [Symbicort 160/4.5] 2 puff IH BIDR 01/17/18 [ History] Clindamycin HCl [Clindamycin HCl] 300 mg PO QID 01/17/18 [History] Diltiazem HCl [Diltiazem 24Hr Cd] 180 mg PO QAM 01/17/18 [History] DiphenhydraMINE [Benadryl] 50 mg PO HS PRN 01/17/18 [History] Dorzolamide HCl [Dorzolamide HCl] 1 drop OP BID 01/17/18 [History] Guaifenesin [Mucinex] 600 mg PO BID 01/17/18 [History] Metoprolol [Lopressor] 25 mg PO BID 01/17/18 [History] Montelukast [Singulair] 10 mg PO DAILY 01/17/18 [History] Multivitamin [One Daily Essential] 1 tab PO DAILY 01/17/18 [History] Oxygen [Oxygen] 2.5 - 4.5 l IH DAILY 01/17/18 [History] Pantoprazole Sodium [Protonix] 40 mg PO BID 01/17/18 [History] Allergies/Adverse Reactions: 3 Allergy/AdvReac Type Severity Reaction Status Date / Time No Known Allergies Allergy Verified 01/17/18 14:58 Date of admission: 01/17/18 16:12 Primary care physician: PCP NONE Consults: 01/20/18 08:41 Consult to Nurse Navigator [CONS] Routine Comment: 01/21/18 12:18 Consult to Physical Therapy [CONS] Routine Comment: Evaluate, develop and implement POC Reason for Consult: Generalized weakness Does patient have active BEDREST order?: No Is patient medically & hemodynamically stable?: Yes Patient assessed for mobility or mobilized this visit?: No Consult to Professional Fee Coder [CONS] Routine Reason for SW Consult: Discharge plan - Constitutional Vitals: Temp Pulse Resp BP Pulse Ox 98.2 F 94 18 98/42 98 01/25/18 10:58 01/25/18 10:58 01/25/18 10:58 01/25/18 11:22 01/25/18 10:58 General appearance: Present: A&O X 3, answers questions appropriately Exam: General appearance: No acute distress, A&O X 3 Head exam: Atraumatic Eye exam: EOMI, PERRLA ENT exam: Moist oral mucosa Neck nontender, supple Respiratory exam: Slight diminished breath sound at bases bilaterally otherwise clear to auscultation Cardiovascular exam: Regular rate and rhythm, no systolic murmur Abdominal exam: Soft, nontender, nondistended, positive bowel sounds Extremities exam: No calf tenderness, no pedal edema Present: Neurological exam: Grossly CN II-XII intact, no focal deficits. No facial droop. Normal speech. Normal gait. - Patient Status Disposition: Home, Self-Care Condition: Fair Overall status at discharge: patient is progressing back to baseline - Discharge Instructions Follow Up With: Jose Rodriges MD [Partnered Physician] - 01/27/18 10:30 am NONE,PCP [Primary Care Provider] - (Patient is from [place], Will make own follow up when she gets home) - Diet and Activity Activity: increase activity as tolerated Diet: low fat, low cholesterol, low salt diet - VTE Documentation of Mechanical Device: Intermittent pneumatic compression device
== END 2018-01-25 14:48 | disposition home or self-care (01) | DRG 291 ==
LOC: 2ANU 09:39 → EMEROO 09:39 → 2NNU 14:04 → ICNU 15:10 → SUATTDRO 16:12 → 2NNU 01-18 13:14
PROVIDERS: ADMIT Internal Medicine; ATTEND Internal Medicine